=== PATIENT | female | born 1980 | race Caucasian/White ===

== ENCOUNTER → 2020-10-12 15:00 | Outpatient (CLI) | payer OTHER, SELFPAY | PROVIDERS: Visit Provider Family Medicine | DX: Z20.828 Contact with and (suspected) exposure to other viral communicable diseases (principal) | CPT/HCPCS: 87635; U0003 ==

== ENCOUNTER → 2024-11-14 | Outpatient (CLI) | payer OTHER, SELFPAY ==
--- OUTSIDE RECORDS SUMMARY | 2024-11-14 07:38 | XMS RPT_ITS | CCD ---
Author Organization [facility] Care Team Providers Care Stock Associate Name Role Phone Salbador Kuo Unavailable Unavailable Haeufgloeckner, Cem Unavailable Unavaila ble Haeufgloeckner, Cem Unavailable Unavaila ble Wagner, Saloni A Unavailable Unavailable Wagner Saloni A Unavailable Unavailable Salbador Kuo Unavailable Unavailable PROVIDER, UNKNOWN Admitting Unavailable PROVIDER, UNKNOWN Attending Unavailable HOOVER, CRISTIAN Admitting Unavailable HOOVER, CRISTIAN Primary Care Unavailable HOOVER, CRISTIAN Attending Unavailable HOOVER, CRISTIAN Admitting Unavailable HOOVER, CRISTIAN Primary Care Unavailable HOOVER, CRISTIAN Attending Unavailable HOOVER, CRISTIAN Admitting Unavailable HOOVER, CRISTIAN Primary Care Unavailable HOOVER, CRISTIAN Attending Unavailable HOOVER, CRISTIAN Admitting Unavailable HOOVER, CRISTIAN Primary Care Unavailable HOOVER, CRISTIAN Attending Unavailable HOOVER, CRISTIAN Admitting Unavailable HOOVER, CRISTIAN Primary Care Unavailable HOOVER, CRISTIAN Attending Unavailable HAEUFGLOECKNER DO, CEM Primary Care Physicia n Yifan, Elias Chi Attending Unavailable INA, K1 Primary Care Unavailable Yifan, Elias Chi Referring Unavailable INA, K1 Primary Care Unavailable Yifan, Elias Chi Referring Unavailable Yifan, Elias Chi Attending Unavailable HAEUFGLOECKNER DO, CEM Attending Unava ilable HAEUFGLOECKNER DO, CEM Primary Care Unava ilable HAEUFGLOECKNER DO, CEM Attending Unava ilable HAEUFGLOECKNER DO, CEM Primary Care Unava ilable HAEUFGLOECKNER DO, CEM Attending Unava ilable HAEUFGLOECKNER DO, CEM Primary Care Unava ilable Medications Current Medications Medication Drug Class(es) Dates Sig (Normalized) Sig (Original) melatonin 10 mg oral capsule (2 sources) Start: 02-05-2020 melatonin 10 mg oral capsule Dose : 10 mg = 1 cap(s), Oral, qHS, PRN for insomnia, # 90 cap(s), 0 Refill(s) Start Date: 02/05/20 Status: Ordered Vitamin D3 (2 sources) Start: 02-05-2020 Vitamin D3 Dose : 2,000 unit(s) = 1 tab(s), Oral, Daily, 0 Refill(s) Start Date: 02/05/20 Status: Ordered Completed/Discontinued Medications Medication Drug Class(es) Dates Sig (Normalized) Sig (Original) glycopyrrolate 2 mg oral tablet (1 source) Start: 10-27-2021 End: 11-06-2021 glycopyrrolate 2 mg oral tablet Dose : 2 mg = 1 tab(s), Oral, BID, For Hyperhidrosis, # 180 tab(s), 3 Refill(s), [facility]: [facility], 181, cm, 10/27/21 8:17:00 EDT, Height Start Date: 10/27/21 Stop Date: 11/06/21 Status: Ordered tiZANidine 2 mg oral tablet (1 source) Central alpha-2 Adrenergic Agonist Start: 03-22-2021 End: 04-05-2021 tiZANidine 2 mg oral tablet Dose : 2 mg = 1 tab(s), Oral, q8h, PRN as needed for muscle spasm, # 42 tab(s), 0 Refill(s), [facility]: [facility], Shoulder pain, right Sprain of right shoulder, 181, cm, 03/22/21 8:18:00 EDT, Height, kg, 03/22/21 8:18:00 EDT, Dos... 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 Residual codes; unclassified (1 source) Insomnia 02-19-2019 Episodic Residual codes; unclassified (1 source) Disturbance in sleep behavior 10-27-2021 Episodic Sprains and strains (1 source) Sprain of shoulder 04-12-2021 Episodic Unclassified (1 source) Unknown / UNK(Unknown) Onset: 01-24-2017 Unclassified (2 sources) ENCOUNTER FOR SCREENING FOR COVID-19; Translations: [ENCOUNTER FOR SCREENING FOR COVID-19] Onset: 02-03-2021 Unclassified (3 sources) Patient encounter status 02-19-2019 Past or Other Problems Problem Classification Problem Date Documented Da te Episodic/Chronic Immunizations and screening for infectious disease (3 sources) Encounter for screening for other viral diseases; Translations: [Encounter for screening for other viral diseases] Onset: 03-01-2020 Episodic Other screening for suspected conditions (not mental disorders or infectious disease) (3 sources) Encounter for screening mammogram for malignant neoplasm of breast; Translations: [Encounter for screening mammogram for malignant neoplasm of breast] Onset: 03-30-2020 Episodic Unclassified (1 source) UTERINE FIBROIDS, IRREGULAR MENSTRUATION Onset: 01-24-2017 Unclassified (1 source) ENCOUNTER FOR SCREENING FOR COVID-19; Translations: [ENCOUNTER FOR SCREENING FOR COVID-19] Onset: 02-03-2021 Results Test Name Value Interpretation Reference Range Facility MA MAMMOGRAM SCREENING BILAT ERAL W/TOMOon 02-25-2024 MA MAMMOGRAM SCREENING BILATERAL W/AYUSH ORIGINAL FROM: [address] [address] PROCEDURE FOR: ALVIN PATTON [address] [place] [address] Home: PID#: [id number] Exam#: [id number] : 1980 Age: 43 TO: CEM YANCEY [address] [place], [place] [address] Fax: NO FAX EXAMINATION: SCREENING DIGITAL BILATERAL MAMMOGRAM WITH TOMOSYNTHESIS, 02/25/2024 8:27 am TECHNIQUE: Screening mammography of the bilateral breasts was performed with tomosynthesis. 2D standard and 3D tomosynthesis combination imaging performed through both breasts in the MLO and CC projection. Computer aided detection was utilized in the interpretation of this exam. COMPARISON: 02/13/2023, 12/07/2021 HISTORY: Breast cancer screening. FINDINGS: BREAST DENSITY: The breasts are heterogeneously dense, which may obscure small masses. There are benign appearing calcifications in both breasts. There are no significant masses or calcifications. IMPRESSION: No mammographic evidence of malignancy. Continued screening with annual mammograms is recommended. [facility] risk calculations, generated with the history provided, report this patient's 10 year risk and lifetime risk for developing breast cancer at 1.6% and 10.9%, respectively. Based on this assessment tool, if the patient's calculated lifetime risk is below 20%, then the patient is considered at average risk for developing breast cancer. If the patient's calculated lifetime risk is at or above 20%, then the patient is considered high risk for developing breast cancer and may be a candidate for supplemental breast MRI screening in addition to annual mammographic screening per the [employer]. BIRADS: BI-RADS: 2: Benign RECALL: 1 year screening RECALL TYPE: mammo LETTER SENT: Normal BI-RADS 1 and 2 Interpreted by: Harpreet Hall MD Preliminary Report By: Harpreet Hall MD Electronically signed By Harpreet Hall MD Dictated Date: 02/25/2024 11:48:44 PM Prelim Date: 02/25/2024 11:50:25 PM Sign Date: 02/25/2024 11:50:25 PM Ordering Provider: CEM YANCEY Telescope Maintenance: STEPHANIE TANG letter sent: Normal BI-RADS 1 and 2 Mammogram BI-RADS: 2 Benign Normal [facility] .Auto Diffon 11-09-2023 Basophil, Absolute 0.1 10 3/mcL Normal 0.0-0.3 [facility] ([place]) Comment on above: Performed By: #### L IPID, GFR, ANEU, CBC, ADIFF, CMP, VIDH #### [facility] [address] [place] [address] Basophils/100 WBC (Bld) 1.1 % Normal 0.0-2.5 [facility] ([place]) Comment on above: Performed By: #### L IPID, GFR, ANEU, CBC, ADIFF, CMP, VIDH #### [address] [address] Eosinophil, Absolute 0.2 10 3/mcL Normal 0.0-0.7 [facility] ([place]) Comment on above: Performed By: #### L IPID, GFR, ANEU, CBC, ADIFF, CMP, VIDH #### [address] [address] Eosinophils/100 WBC (Bld) 2.8 % Normal 0.0-6.0 [facility] ([place]) Comment on above: Performed By: #### L IPID, GFR, ANEU, CBC, ADIFF, CMP, VIDH #### [address] [address] Lymphocyte, Absolute 1.6 10 3/mcL Normal 0.9-4.3 [facility] ([place]) Comment on above: Performed By: #### L IPID, GFR, ANEU, CBC, ADIFF, CMP, VIDH #### [address] [address] Lymphocytes/100 WBC (Bld) 26.4 % Normal 20.0-40.0 [facility] ([place]) Comment on above: Performed By: #### L IPID, GFR, ANEU, CBC, ADIFF, CMP, VIDH #### [address] [address] Monocyte, Absolute 0.4 10 3/mcL Normal 0.1-1.4 [facility] ([place]) Comment on above: Performed By: #### L IPID, GFR, ANEU, CBC, ADIFF, CMP, VIDH #### [address] [address] Monocytes/100 WBC (Bld) 6.8 % Normal 2.0-13.0 [facility] ([place]) Comment on above: Performed By: #### L IPID, GFR, ANEU, CBC, ADIFF, CMP, VIDH #### [address] [address] Neutrophils/100 WBC (Bld) 62.9 % Normal 50.0-75.0 [facility] ([place]) Comment on above: Performed By: #### L IPID, GFR, ANEU, CBC, ADIFF, CMP, VIDH #### [address] [address] .GFRon 11-09-2023 GFR Non- >60 Normal [facility] ([place]) Comment on above: Result Comment: GFR Population mean for , Non- Americans Ages 20-29 = 116 mL/min/1.73 sq.m. Ages 30-39 = 107 mL/min/1.73 sq.m. Ages 40-49 = 99 mL/min/1.73 sq.m. Ages 50-59 = 93 mL/min/1.73 sq.m. Ages 60-69 = 85 mL/min/1.73 sq.m. Ages 70+ = 75 mL/min/1.73 sq.m. Chronic Kidney Disease: Less than 60 mL/min/1.73 square meters End Stage Renal Disease: Less than 15 mL/min/1.73 square meters Performed By: #### L IPID, GFR, ANEU, CBC, ADIFF, CMP, VIDH #### [address] [address] GFR >60 Normal [facility] ([place]) Comment on above: Result Comment: GFR Population mean for , Non- Americans Ages 20-29 = 116 mL/min/1.73 sq.m. Ages 30-39 = 107 mL/min/1.73 sq.m. Ages 40-49 = 99 mL/min/1.73 sq.m. Ages 50-59 = 93 mL/min/1.73 sq.m. Ages 60-69 = 85 mL/min/1.73 sq.m. Ages 70+ = 75 mL/min/1.73 sq.m. Chronic Kidney Disease: Less than 60 mL/min/1.73 square meters End Stage Renal Disease: Less than 15 mL/min/1.73 square meters Performed By: #### L IPID, GFR, ANEU, CBC, ADIFF, CMP, VIDH #### [address] [address] .NEUABSon 11-09-2023 Neutrophil, Absolute 3.9 10 3/mcL Normal 2.3-8.1 [facility] ([place]) Comment on above: Performed By: #### L IPID, GFR, ANEU, CBC, ADIFF, CMP, VIDH #### [address] [address] CBCon 11-09-2023 Erythrocyte distribution width (RBC) [Ratio] 12.5 % Normal 11.5-15.5 [facility] ([place]) Comment on above: Order Comment: *12 m onths Performed By: #### L IPID, GFR, ANEU, CBC, ADIFF, CMP, VIDH #### [address] [address] Hematocrit (Bld) [Volume fraction] 46.0 % Normal 34.0-46.0 [facility] ([place]) Comment on above: Order Comment: *12 m onths Performed By: #### L IPID, GFR, ANEU, CBC, ADIFF, CMP, VIDH #### [place] [address] Hgb 15.5 G/dL Normal 12.0-16.0 [facility] ([place]) Comment on above: Order Comment: *12 m onths Performed By: #### L IPID, GFR, ANEU, CBC, ADIFF, CMP, VIDH #### [address] [address] MCH (RBC) [Entitic mass] 30.6 pg Normal 27.0-33.0 [facility] ([place]) Comment on above: Order Comment: *12 m onths Performed By: #### L IPID, GFR, ANEU, CBC, ADIFF, CMP, VIDH #### [address] [address] MCHC 33.7 G/dL Normal 32.0-36.0 [facility] ([place]) Comment on above: Order Comment: *12 m onths Performed By: #### L IPID, GFR, ANEU, CBC, ADIFF, CMP, VIDH #### [address] [address] MCV (RBC) [Entitic vol] 90.9 fL Normal 80.0-99.0 [facility] ([place]) Comment on above: Order Comment: *12 m onths Performed By: #### L IPID, GFR, ANEU, CBC, ADIFF, CMP, VIDH #### [address] [address] Platelet 245 10 3/mcL Normal 150-450 [facility] ([place]) Comment on above: Order Comment: *12 m onths Performed By: #### L IPID, GFR, ANEU, CBC, ADIFF, CMP, VIDH #### [address] [address] Platelet mean volume (Bld) [Entitic vol] 9.9 fL Normal 6.6-10.5 [facility] ([place]) Comment on above: Order Comment: *12 m onths Performed By: #### L IPID, GFR, ANEU, CBC, ADIFF, CMP, VIDH #### [address] [address] RBC 5.06 10 6/mcL Normal 4.10-5.30 [facility] ([place]) Comment on above: Order Comment: *12 m onths Performed By: #### L IPID, GFR, ANEU, CBC, ADIFF, CMP, VIDH #### [address] [address] WBC 6.1 10 3/mcL Normal 4.5-10.8 [facility] ([place]) Comment on above: Order Comment: *12 m onths Performed By: #### L IPID, GFR, ANEU, CBC, ADIFF, CMP, VIDH #### [address] [address] CMPon 11-09-2023 Albumin Level 4.1 G/dL Normal 3.2-4.8 [facility] ([place]) Comment on above: Order Comment: *12 m onths Performed By: #### L IPID, GFR, ANEU, CBC, ADIFF, CMP, VIDH #### [address] [address] Albumin/Globulin [Mass ratio] 1.5 {ratio} Normal 0.9-1.6 [facility] ([place]) Comment on above: Order Comment: *12 m onths Performed By: #### L IPID, GFR, ANEU, CBC, ADIFF, CMP, VIDH #### [address] [address] ALP [Catalytic activity/Vol] 69 U/L Normal 38-126 [facility] ([place]) Comment on above: Order Comment: *12 m onths Performed By: #### L IPID, GFR, ANEU, CBC, ADIFF, CMP, VIDH #### [address] [address] ALT [Catalytic activity/Vol] 18 U/L Normal 10-49 [facility] ([place]) Comment on above: Order Comment: *12 m onths Performed By: #### L IPID, GFR, ANEU, CBC, ADIFF, CMP, VIDH #### [address] [address] AST [Catalytic activity/Vol] 17 U/L Normal 8-34 [facility] ([place]) Comment on above: Order Comment: *12 m onths Performed By: #### L IPID, GFR, ANEU, CBC, ADIFF, CMP, VIDH #### [address] [address] Bili Total 0.80 mg/dL Normal 0.20-1.20 [facility] ([place]) Comment on above: Order Comment: *12 m onths Result Comment: Use of this assay is not recommended for patients undergoing treatment with eltrombopag due to the potential for falsely elevated results. Performed By: #### L IPID, GFR, ANEU, CBC, ADIFF, CMP, VIDH #### [address] [address] BUN/Creatinine Ratio 22.1 ratio High 10.0-22.0 [facility] ([place]) Comment on above: Order Comment: *12 m onths Performed By: #### L IPID, GFR, ANEU, CBC, ADIFF, CMP, VIDH #### [address] [address] Calcium [Mass/Vol] 9.6 mg/dL Normal 8.7-10.4 [facility] ([place]) Comment on above: Order Comment: *12 m onths Performed By: #### L IPID, GFR, ANEU, CBC, ADIFF, CMP, VIDH #### [address] [address] Chloride [Moles/Vol] 106 mmol/L Normal 98-110 [facility] ([place]) Comment on above: Order Comment: *12 m onths Performed By: #### L IPID, GFR, ANEU, CBC, ADIFF, CMP, VIDH #### [address] [address] CO2 [Moles/Vol] 27 mmol/L Normal 22-32 [facility] ([place]) Comment on above: Order Comment: *12 m onths Performed By: #### L IPID, GFR, ANEU, CBC, ADIFF, CMP, VIDH #### [address] [address] Creatinine [Mass/Vol] 0.77 mg/dL Normal 0.50-1.20 [facility] ([place]) Comment on above: Order Comment: *12 m onths Performed By: #### L IPID, GFR, ANEU, CBC, ADIFF, CMP, VIDH #### [address] [address] Electrolyte Balance 8.0 mEq/L Normal 4.0-15.0 [facility] ([place]) Comment on above: Order Comment: *12 m onths Performed By: #### L IPID, GFR, ANEU, CBC, ADIFF, CMP, VIDH #### [address] [address] Globulin 2.8 G/dL Normal 1.5-3.8 [facility] ([place]) Comment on above: Order Comment: *12 m onths Performed By: #### L IPID, GFR, ANEU, CBC, ADIFF, CMP, VIDH #### [address] [address] Glucose [Mass/Vol] 83 mg/dL Normal 70-110 [facility] ([place]) Comment on above: Order Comment: *12 m onths Performed By: #### L IPID, GFR, ANEU, CBC, ADIFF, CMP, VIDH #### [address] [address] Potassium [Moles/Vol] 4.2 mmol/L Normal 3.5-5.0 [facility] ([place]) Comment on above: Order Comment: *12 m onths Performed By: #### L IPID, GFR, ANEU, CBC, ADIFF, CMP, VIDH #### [address] [address] Sodium [Moles/Vol] 141 mmol/L Normal 136-145 [facility] ([place]) Comment on above: Order Comment: *12 m onths Performed By: #### L IPID, GFR, ANEU, CBC, ADIFF, CMP, VIDH #### [address] [address] Total Protein 6.9 G/dL Normal 5.7-8.2 [facility] ([place]) Comment on above: Order Comment: *12 m onths Result Comment: No te - New Reference Range in effect 19 Performed By: #### L IPID, GFR, ANEU, CBC, ADIFF, CMP, VIDH #### [address] [address] Urea nitrogen [Mass/Vol] 17.0 mg/dL Normal 8.0-22.0 [facility] ([place]) Comment on above: Order Comment: *12 m onths Performed By: #### L IPID, GFR, ANEU, CBC, ADIFF, CMP, VIDH #### [address] [address] LIPIDon 11-09-2023 Cholesterol [Mass/Vol] 201 mg/dL High 50-199 [facility] ([place]) Comment on above: Order Comment: *12 m onths Result Comment: Chol esterol Reference Interval: Less than 200 Desirable 200-239 Borderline high risk 240 and above High risk Performed By: #### L IPID, GFR, ANEU, CBC, ADIFF, CMP, VIDH #### [address] [address] Cholesterol in HDL [Mass/Vol] 85 mg/dL High 40-59 [facility] ([place]) Comment on above: Order Comment: *12 m onths Performed By: #### L IPID, GFR, ANEU, CBC, ADIFF, CMP, VIDH #### [facility] [address] [place] [address] Cholesterol in LDL [Mass/Vol] 105 mg/dL Normal 0-129 [facility] ([place]) Comment on above: Order Comment: *12 m onths Performed By: #### L IPID, GFR, ANEU, CBC, ADIFF, CMP, VIDH #### [facility] [address] [place] [address] Triglyceride [Mass/Vol] 57 mg/dL Normal 3-149 [facility] ([place]) Comment on above: Order Comment: *12 m onths Performed By: #### L IPID, GFR, ANEU, CBC, ADIFF, CMP, VIDH #### [address] [address] VIDHon 11-09-2023 Vit. D 25-Hydroxy 30.1 ng/mL Normal [facility] ([place]) Comment on above: Order Comment: *12 m onths Result Comment: Inte rpretive Values Based on Total 25(OH)D: Severe Deficiency <20 ng/mL Mild to Moderate Deficiency 20-30 ng/mL Optimum Levels 30-100 ng/mL Toxicity Possible >100 ng/mL Performed By: #### L IPID, GFR, ANEU, CBC, ADIFF, CMP, VIDH #### [address] [address] [place] MAMMOGRAM DIAGNOSTIC BILA TERAL W/TOMOon 02-13-2023 MA MAMMOGRAM DIAGNOSTIC BILATERAL W/AYUSH ORIGINAL FROM: [facility] [address] [place] [address] PROCEDURE FOR: ALVIN PATTON [address] [place] [address] Home: PID#: [id number] Exam#: [id number] : 1980 Age: 42 TO: CEM YANCEY DO [address] [place], [place] [address] Fax: NO FAX EXAMINATION: DIAGNOSTIC BILATERAL MAMMOGRAM WITH TOMOSYNTHESIS, 02/13/2023 9:01 am TECHNIQUE: Tomosynthesis was performed as part of the diagnostic bilateral mammogram. 2D standard and 3D tomosynthesis combination imaging performed. Current study was also evaluated with a Computer Aided Detection (CAD) system. COMPARISON: January 02, 2022, December 07, 2021 HISTORY: ORDERING SYSTEM PROVIDED HISTORY: Reason for Exam: LEFT breast asymmetry; due for bilateral screening FINDINGS: BREAST DENSITY: Heterogeneously dense The previously seen area of mammographic interest in the left breast is not present on the current study, and likely represented superimposed fibroglandular tissue. No significant masses, calcifications, or other findings. IMPRESSION: No mammographic evidence of malignancy. The patient may return to annual mammographic screening. BIRADS: MAMMOGRAM BI-RADS: 2: Benign finding RECALL: return to screening RECALL TYPE: mammo LETTER SENT: Normal BI-RADS 1 and 2 Interpreted by: Meka Nolasco Preliminary Report By: Meka Nolasco Electronically signed By Meka Nolasco Dictated Date: 02/13/2023 4:56:39 PM Prelim Date: 02/13/2023 5:28:12 PM Sign Date: 02/13/2023 5:28:12 PM Ordering Provider: CEM YANCEY CLINICAL: ASYMMETRIC DENSITY LEFT BREAST. Telescope Maintenance: VELMA MAC RT(R)(M) letter sent: Normal BI-RADS 1 and 2 Mammogram BI-RADS: 2 Benign Normal [facility] ([place]) COVID 19 AG RAPID (SELMA Obando)on 02-10-2023 SARS-CoV-2 (COVID-19) RNA MARYELLEN+probe Ql (Unsp spec) *Negative results from patients with symptom onset beyond five days should be treated as presumptive and confirmed by a molecular assay if clinically necessary. Negative results should not be used as the sole basis for treatment or for patient management. SARS-CoV-2 Ag Resp Ql IA.rapid *Positive results do not differentiate between SARS-CoV and SARS-CoV-2. If differentiation of the specific SARS virus is desired an additional sample and an additional order is required. SARS-CoV-2 Ag Resp Ql IA.rapid * This test has not been FDA cleared or approved; the test has been authorized by FDA under an Emergency Use Authorization (EAU) for use by laboratories certified under CLIA that meet the requirements to perform moderate, high, or waived complexity tests. SARS-CoV-2 Ag Resp Ql IA.rapid Normal Reference Range: Negative SARS-CoV-2 (COVID 19) Negative RAPID METHOD [employer] COVID19 [address] [facility] Comment on above: Performed By: #### M 100.505 #### [facility] [address] [facility] [place], [address] COVID-19 virus antigen assay Ordered By: Elias Saha on 02-10-2023 SARS-CoV-2 (COVID-19) Ag IA.rapid Ql (Resp) [facility] LABORATORYOrdered By: SYSTEM SYSTEM on 10-21-2021 Albumin BCP dye [Mass/Vol] 4.0 G/dL Invalid Interpretation Code 3.2 - 4.8 G/dL ADM SS Albumin/Globulin [Mass ratio] 1.4 {ratio} Invalid Interpretation Code 0.9 - 1.6 ratio AH ADM SS ALP [Catalytic activity/Vol] 82 U/L Invalid Interpretation Code 38 - 126 U/L AH ADM SS ALT No additional P-5'-P [Catalytic activity/Vol] 17 U/L Invalid Interpretation Code 10 - 49 U/L AH ADM SS AST [Catalytic activity/Vol] 15 U/L Invalid Interpretation Code 8 - 34 U/L AH ADM SS Bilirubin [Mass/Vol] 0.80 mg/dL Invalid Interpretation Code 0.20 - 1.20 mg/dL AH ADM SS Calcium [Mass/Vol] 9.8 mg/dL Invalid Interpretation Code 8.7 - 10.4 mg/dL AH ADM SS Chloride [Moles/Vol] 105 mmol/L Invalid Interpretation Code 98 - 110 mEq/L AH ADM SS CO2 [Moles/Vol] 29 mmol/L Invalid Interpretation Code 22 - 32 mEq/L AH ADM SS Creatinine [Mass/Vol] 0.94 mg/dL Invalid Interpretation Code 0.50 - 1.20 mg/dL AH ADM SS Electrolyte Balance 6.0 mEq/L Invalid Interpretation Code 4.0 - 15.0 mEq/L AH ADM SS Erythrocyte distribution width (RBC) [Ratio] 12.7 % Invalid Interpretation Code 11.5 - 15.5 % Workflow SS GFR/1.73 sq M.predicted among blacks MDRD (S/P/Bld) [Vol rate/Area] ml/min/1.73sqm Invalid Interpretation Code Chemistry S GFR/1.73 sq M.predicted among non-blacks MDRD (S/P/Bld) [Vol rate/Area] ml/min/1.73sqm Invalid Interpretation Code Chemistry S Globulin 2.9 G/dL Invalid Interpretation Code 1.5 - 3.8 G/dL ADM SS Glucose [Mass/Vol] 88 mg/dL Invalid Interpretation Code 70 - 110 mg/dL ADM SS Hematocrit (Bld) [Volume fraction] 46.6 % Invalid Interpretation Code 34.0 - 46.0 % Workflow SS Hgb 15.5 G/dL Invalid Interpretation Code 12.0 - 16.0 G/dL Workflow SS MCH (RBC) [Entitic mass] 30.1 pg Invalid Interpretation Code 27.0 - 33.0 pg Workflow SS MCHC 33.3 G/dL Invalid Interpretation Code 32.0 - 36.0 G/dL Workflow SS MCV (RBC) [Entitic vol] 90.4 fL Invalid Interpretation Code 80.0 - 99.0 fL Workflow SS Platelet 253 103/mcL Invalid Interpretation Code 150 - 450 10^3/mcL Workflow SS Platelet mean volume (Bld) [Entitic vol] 9.0 fL Invalid Interpretation Code 6.6 - 10.5 fL Workflow SS Potassium [Moles/Vol] 4.7 mmol/L Invalid Interpretation Code 3.5 - 5.0 mEq/L ADM SS Protein [Mass/Vol] 6.9 G/dL Invalid Interpretation Code 5.7 - 8.2 G/dL ADM SS RBC 5.15 106/mcL Invalid Interpretation Code 4.10 - 5.30 10^6/mcL Workflow SS Sodium [Moles/Vol] 140 mmol/L Invalid Interpretation Code 136 - 145 mEq/L ADM SS Urea nitrogen [Mass/Vol] 20.0 mg/dL Invalid Interpretation Code 8.0 - 22.0 mg/dL ADM SS Urea nitrogen/Creatinine [Mass ratio] 21.3 ratio Invalid Interpretation Code 10.0 - 22.0 ratio ADM SS WBC 6.3 103/mcL Invalid Interpretation Code 4.5 - 10.8 10^3/mcL Workflow SS LABORATORYOrdered By: Remy Garcia on 10-21-2021 Cholesterol [Mass/Vol] 194 mg/dL Invalid Interpretation Code 50 - 199 mg/dL AH ADM SS Cholesterol in HDL [Mass/Vol] 84 mg/dL Invalid Interpretation Code 40 - 59 mg/dL AH ADM SS Cholesterol in LDL [Mass/Vol] 100 mg/dL Invalid Interpretation Code 0 - 129 mg/dL AH ADM SS Triglyceride [Mass/Vol] 51 mg/dL Invalid Interpretation Code 3 - 149 mg/dL ADM SS CORONAVIRUS PCR - [facility] 02-03-2021 SARS-CoV-2 (COVID-19) RNA MARYELLEN+probe Ql (Unsp spec) Negative Normal NORMAL: NEGATIVE [facility] Comment on above: Performed By: #### 2 [id number] #### [facility],[address] [place] [address] SEND TO IC? YES Normal [facility] Comment on above: Result Comment: RESU LTS FAXED TO INFECTION CONTROL. SARS-CoV-2 THIS TEST IS BEING USED UNDER THE FDA EUA PROCEDURE. THIS ASSAY HAS BEEN VALIDATED IN THE [facility] FOR USE WITH NASOPHARYNGEAL SPECIMENS IN [facility]. INTERPRETIVE DATA LABORATORY TEST RESULTS SHOULD ALWAYS BE CONSIDERED IN THE CONTEXT OF CLINICAL OBSERVATIONS AND EPIDEMIOLOGICAL DATA IN MAKING FINAL DIAGNOSIS AND PATIENT MANAGEMENT DECISIONS. PATIENT MANAGEMENT SHOULD FOLLOW CURRENT CDC GUIDELINES. A POSITIVE TEST RESULT FOR COVID-19 INDICATES THAT RNA FROM SARS-CoV-2 WAS DETECTED, AND THE PATIENT IS INFECTED WITH THE VIRUS AND PRESUMED TO BE CONTAGIOUS. A NEGATIVE TEST RESULT FOR THIS TEST MEANS THAT SARS-CoV-2 RNA WAS NOT PRESENT IN THE SPECIMEN ABOVE THE LIMIT OF DETECTION. HOWEVER, A NEGATVIE RESULT DOES NOT RULE OUT COVID-19 AND SHOULD NOT BE USED THE SOLE BASIS FOR TREATMENT OR PATIENT MANAGEMENT DECISIONS. A NEGATIVE RESULT DOES NOT EXCLUDE THE POSSIBILITY OF COVID-19. WHEN DIAGNOSTIC TESTING IS NEGATIVE, THE POSSIBLILTY OF A FALSE NEGATIVE RESULT SHOULD BE CONSIDERED IN THE CONTEXT OF A PATIENT'S RECENT EXPOSURES AND THE PRESENCE OF CLINICAL SIGNS AND SYMPTOMS CONSISTENT WITH COVID-19. THE POSSIBILITY OF A FALSE NEGATIVE RESULT SHOULD ESPECIALLY BE CONSIDERED IF THE PATIENT'S RECENT EXPOSURES OR CLINICAL PRESENTATION INDICATE THAT COVID-19 IS LIKELY, AND DIAGNOSTIC TESTS FOR OTHER CAUSES OF ILLNESS (e.g., OTHER RESPIRATORY ILLNESS) ARE NEGATIVE. IF COVID-19 IS STILL SUSPECTED BASED ON EXPOSURE HISTORY TOGETHER WITH OTHER CLINICAL FINDINGS, RE-TESTED SHOULD BE CONSIDERED BY HEALTHCARE PROVIDERS IN CONSULTATION WITH PUBLIC HEALTH AUTHORITIES. Performed By: #### 2 [id number] #### [facility],[address] [place] [address] CORONAVIRUS PCR [CCL]on 03-21 SARS-CoV-2 (COVID-19) RNA MARYELLEN+probe Ql (Unsp spec) Unknown Normal [facility] Comment on above: Result Comment: Sarah ected on 03/31 AT 1308: Previously reported as U Performed By: #### 2 [id number] #### [address] [address] SARS-CoV-2 (COVID-19) RNA MARYELLEN+probe Ql (Unsp spec) Negative Normal [facility] Comment on above: Result Comment: Nega tive for COVID19 (SARS CoV2) by PCR. This test was developed and its performance characteristics determined by [facility]'s [facility] [place]. This test has been authorized by FDA under an Emergency Use Authorization (EUA). This test has been validated in accordance with the FDA's Guidance Document Policy for Diagnostics Testing in Laboratories Certified to Perform High Complexity Testing under CLIA prior to Emergency use Authorization for Coronavirus Disease 2019 during the Public Health Emergency issued on July 19, 2019. [facility] [address] [place] [address] Domenic Hall III, M.D. [id number] Performed By: #### 2 57474 #### [address] [address] Coronavirus 2019on 0 COVID 19 Result CATTLE SPRAYER Normal Negative for COVID19 (SARS CoV2) by PCR. [facility] Comment on above: Result Comment: Nega tive for This test was developed and its performance characteristics determined by [facility]'s [facility] [place]. This test has been authorized by FDA under an Emergency Use Authorization (EUA). This test has been validated in accordance with the FDA's Guidance Document Policy for Diagnostics Testing in Laboratories Certified to Perform High Complexity Testing under CLIA prior to Emergency use Authorization for Coronavirus Disease 2019 during the Public Health Emergency issued on July 19, 2019. COVID19 (SARS This test was developed and its performance characteristics determined by [facility]'s [facility] [place]. This test has been authorized by FDA under an Emergency Use Authorization (EUA). This test has been validated in accordance with the FDA's Guidance Document Policy for Diagnostics Testing in Laboratories Certified to Perform High Complexity Testing under CLIA prior to Emergency use Authorization for Coronavirus Disease 2019 during the Public Health Emergency issued on July 19, 2019. CoV2) by PCR. This test was developed and its performance characteristics determined by [facility]'s [facility] [place]. This test has been authorized by FDA under an Emergency Use Authorization (EUA). This test has been validated in accordance with the FDA's Guidance Document Policy for Diagnostics Testing in Laboratories Certified to Perform High Complexity Testing under CLIA prior to Emergency use Authorization for Coronavirus Disease 2019 during the Public Health Emergency issued on July 19, 2019. Coronavirus 2019on 0 COVID 19 Source CATTLE SPRAYER Unknown Normal [facility] CORONAVIRUS PCR [CCL]on 02-18 SARS-CoV-2 (COVID-19) RNA MARYELLEN+probe Ql (Unsp spec) Nasopharyngeal Swab Normal [facility] Comment on above: Result Comment: Sarah ected on 03/08 AT 0937: Previously reported as CATTLE SPRAYER SWAB Performed By: #### 2 [id number] #### [facility],[address] [place], [place] [id number] SARS-CoV-2 (COVID-19) RNA MARYELLEN+probe Ql (Unsp spec) Negative Normal [facility] Comment on above: Result Comment: Nega tive for COVID19 (SARS CoV2) by PCR. This test was developed and its performance characteristics determined by [facility]'s [facility] [place]. This test has been authorized by FDA under an Emergency Use Authorization (EUA). This test has been validated in accordance with the FDA's Guidance Document Policy for Diagnostics Testing in Laboratories Certified to Perform High Complexity Testing under CLIA prior to Emergency use Authorization for Coronavirus Disease 2019 during the Public Health Emergency issued on July 19, 2019. [facility] [place] [address] [place] [address] Domenic Hall III, M.D. [id number] Performed By: #### 2 [id number] #### [facility],[address] [place], [place] [id number] Coronavirus 2019on 0 COVID 19 Result CATTLE SPRAYER Normal Negative for COVID19 (SARS CoV2) by PCR. [facility] Comment on above: Result Comment: Nega tive for This test was developed and its performance characteristics determined by [facility]'s [facility] [place]. This test has been authorized by FDA under an Emergency Use Authorization (EUA). This test has been validated in accordance with the FDA's Guidance Document Policy for Diagnostics Testing in Laboratories Certified to Perform High Complexity Testing under CLIA prior to Emergency use Authorization for Coronavirus Disease 2019 during the Public Health Emergency issued on July 19, 2019. COVID19 (SARS This test was developed and its performance characteristics determined by [facility]'s [facility] [place]. This test has been authorized by FDA under an Emergency Use Authorization (EUA). This test has been validated in accordance with the FDA's Guidance Document Policy for Diagnostics Testing in Laboratories Certified to Perform High Complexity Testing under CLIA prior to Emergency use Authorization for Coronavirus Disease 2019 during the Public Health Emergency issued on July 19, 2019. CoV2) by PCR. This test was developed and its performance characteristics determined by [facility]'s [facility] [place]. This test has been authorized by FDA under an Emergency Use Authorization (EUA). This test has been validated in accordance with the FDA's Guidance Document Policy for Diagnostics Testing in Laboratories Certified to Perform High Complexity Testing under CLIA prior to Emergency use Authorization for Coronavirus Disease 2019 during the Public Health Emergency issued on July 19, 2019. Performed By: #### C OVID #### [facility] Reference [facility] [place] [id number] COVID 19 Source CATTLE SPRAYER Normal [facility] Comment on above: Result Comment: Naso pharyngeal Corrected on 03/08 AT 0937: Previously reported as CATTLE SPRAYER SWAB Swab Corrected on 03/08 AT 0937: Previously reported as CATTLE SPRAYER SWAB Performed By: #### C OVID #### [facility] Reference [address] [place] [id number] CORONAVIRUS PCR [CCL]on 02-18 REF LAB REPORT Negative Normal [facility] Comment on above: Performed By: #### 2 09286 #### [facility],[address] [place] [address] SARS-CoV-2 (COVID-19) RNA MARYELLEN+probe Ql (Unsp spec) U Normal [facility] Comment on above: Performed By: #### 2 47111 #### [facility],[address] [place] [address] SARS-CoV-2 (COVID-19) RNA MARYELLEN+probe Ql (Unsp spec) Negative Normal [facility] Comment on above: Result Comment: Nega tive for COVID19 (SARS CoV2) by PCR. This test was developed and its performance characteristics determined by [facility] [place]. This test has been authorized by FDA under an Emergency Use Authorization (EUA). This test has been validated in accordance with the FDA's Guidance Document Policy for Diagnostics Testing in Laboratories Certified to Perform High Complexity Testing under CLIA prior to Emergency use Authorization for Coronavirus Disease 2019 during the Public Health Emergency issued on July 19, 2019. [facility] [address] [place] [address] Domenic Hall III, M.D. [id number] Performed By: #### 2 04505 #### [facility],[address] [place] [address] CORONAVIRUS PCR [CCL]on 02-18 REF LAB REPORT Negative Normal [facility] Comment on above: Performed By: #### 2 10195 #### [facility],[address] [place] [address] SARS-CoV-2 (COVID-19) RNA MARYELLEN+probe Ql (Unsp spec) U Normal [facility] Comment on above: Performed By: #### 2 70532 #### [facility],[address] [place] [address] SARS-CoV-2 (COVID-19) RNA MARYELLEN+probe Ql (Unsp spec) Negative Normal [facility] Comment on above: Result Comment: Nega tive for COVID19 (SARS CoV2) by PCR. This test was developed and its performance characteristics determined by [facility]'s [facility] Pathology and Laboratory Medicine [place]. This test has been authorized by FDA under an Emergency Use Authorization (EUA). This test has been validated in accordance with the FDA's Guidance Document Policy for Diagnostics Testing in Laboratories Certified to Perform High Complexity Testing under CLIA prior to Emergency use Authorization for Coronavirus Disease 2019 during the Public Health Emergency issued on July 19, 2019. [facility] [address] [place] [address] Domenic Hall III, M.D. [id number] Performed By: #### 2 73193 #### [facility],[address] [place] [address] NOVEL CORONAVIRUS (COVID-19) on 11-11-2019 SARS-COV-2 Not Detected Normal Not Detected [facility] [employer] [facility] Comment on above: Order Comment: This assay was performed by [employer] (MARYELLEN) on the Aptima??? [place]??? System ([employer] [place], [place]) using [employer] Mediated Amplification (TMA) technology. This test was developed, and its performance characteristics determined by [facility]. The Aptima??? SARS-CoV-2 assay is for use only under Emergency Use Authorization (EUA) in the US laboratories certified under the Clinical Laboratory Improvement Amendments of 1988 (CLIA), 42 U.S.C. ???263a, to perform high complexity tests. Performed By: #### C OVID19 #### [facility] [address] [place], [address] HHon 01-25-2017 Hematocrit (HCT) 29.9 % Low 35.0-47.0 [facility] Comment on above: Order Comment: Davidu s: M Performed By: #### L 550.48229 ####[facility] [id number] [place], [place] [address]Fr# [phone] Hemoglobin mass conc (Bld) 8.8 g/dL Low 11.5-15.5 [facility] Comment on above: Order Comment: Davidu s: M Performed By: #### L 550.00439 ####[facility] [id number] [place], [place] [address]Sr# [phone] ORon 01-24-2017 OPERATIVE REPORT Normal [facility] OR DATE OF SERVICE: 01/24/2017PREOPERATIVE DIAGNOSIS: Menorrhagia.POSTOPERATIVE DIAGNOSIS: Menorrhagia.OPERATION: Total vaginal hysterectomy.SURGEON: Salbador Kuo MDASSISTANT: Danny Franz DOANESTHESIA: General.INTRAVENOUS FLUIDS: 1000 mLESTIMATED BLOOD LOSS: 25 mLCOMPLICATIONS: None.SPECIMEN: Uterus and cervix.CONDITION: Stable.FINDINGS: The external genitalia, introitus and cervix appeared normal and waswithout any evidence of lesions or trauma. Grade 1 apical prolapse present.Examination under anesthesia revealed a normal-sized anteverted uterus with normalcontour and bilateral adnexa.INDICATIONS: Ms. Patton is a 36-year-old female with a history of menorrhagia whodesired definitive surgical management and was recommended for the above procedure.At her preoperative appointment, the patient was informed of the risks, benefits andalternatives. Risks include, but were not limited to bleeding, infection, injury tothe internal organs including bowel, bladder and/or vasculature. The patient isaware and continues to desire this procedure. Consent was obtained at herpreoperative appointment.PROCEDURE: The patient was taken back to the operating room with IV fluids running.SCDs were placed on the lower extremities and remained throughout the entireprocedure. Preoperative antibiotics were given for infection prophylaxis and generalanesthesia was established and found to be adequate. A time-out was performed toconfirm the correct patient and correct procedure. The patient was then placed in adorsal lithotomy position using yellowfin stirrups and she was prepped and draped inthe usual sterile fashion. A Cesar catheter was inserted into the bladder and abimanual examination was performed with the above-noted findings appreciated. [facility] PATIENT NAME: ALVIN PATTON [id number] [facility] [address] [facility] MEDICAL REC #: [id number], [place] [address] DATE:DISCHARGE DATE: 01/25/17OPERATIVE REPORT ATTENDING PHY: Salbador Kuo MDweighted speculum was placed into the vagina and Court tenaculums were then usedto grasp the anterior and posterior aspects of the cervix. The cervix was theninjected circumferentially with 1% lidocaine and epinephrine solution forhydrodissection. The cervix was then circumferentially incised with a scalpel andMayo scissors and further blunt dissection was then accomplished using an openRay-Shiraz. The posterior peritoneum was then identified and opened using Mayoscissors, gaining access to the posterior cul-de-sac without complication. A curvedHeaney clamp was then used over the right uterosacral ligament which was then cut andsuture ligated. The same was then repeated to the left uterosacral ligament. Theright and left cardinal ligaments were then clamped, cut and suture ligated as well,and this allowed adequate visualization of the uterine vessels which were also bothclamped, cut and suture ligated; first with a free tie and then with a Heaneytransfixation suture bilaterally. Excellent hemostasis was observed. Attention wasthen turned anteriorly where the uterus could be brought down and further allowbetter visualization of the bladder reflection. The anterior peritoneum wasidentified and entered sharply with Metzenbaum scissors and the right-angle retractorwas placed to retract the bladder away from the operative field. The right and leftutero-ovarian ligaments were then grasped with curved Yary clamps and cut,resulting in complete amputation of the uterus and cervix which were taken off theoperating field and sent to pathology for further evaluation. The utero-ovarianpedicles were then ligated first with a free tie and then suture ligated. Excellenthemostasis at all pedicles was observed. The posterior peritoneum was then affixedto the posterior edge of the vaginal mucosa with a running 0 stitch and theperitoneum was then closed with a pursestring suture. A figure of eight stitch wasthen placed at the edge of the vaginal cuff inferior to the anterior vaginal mucosa,the anterior edge of the peritoneum, the uterosacral ligament, the posteriorperitoneum and posterior vaginal cuff. This was tied down and then also tied intothe remnant of the uterosacral stitch for additional support. The same was thenrepeated on the opposite side. The remaining portion of the vaginal cuff was thenclosed using interrupted figure of eight sutures. Further inspection revealedadequate hemostasis and the vagina was then packed with Iodoform gauze. All sponge,needle, and instrument counts were correct x2 and the patient tolerated the procedurewell and was transferred to the recovery room in stable condition. Dr. Kuo waspresent and participated in all portions of the procedure.Danny Franz DO dictating for WALTER Mcdaniels/[id number]: 01/25/2017 11:54DT: 01/25/2017 13:35SSI File#: [id number] #: [id number] [facility] PATIENT NAME: ALVIN PATTON [id number] [facility] MEDICAL REC #: [id number], [place] [address] DATE:DISCHARGE DATE: 01/25/17OPERATIVE REPORT ATTENDING PHY: Salbador Kou MDVerified/Reviewed by02/05/17 0729 [facility] PATIENT NAME: [facility]TON [id number] [facility] REC #: [id number], [place] [address] DATE:DISCHARGE DATE: 01/25/17OPERATIVE REPORT ATTENDING PHY: Salbador Kuo MD [facility] [place] SURGon 01-24-2017 SURG --------- -----Patient: ALVIN PATTON M -----SPECIMEN: [id number] Collection Date: 01/24/17 Received: 01/24/17 Status: NICHOLAS Vigil. DrHelena: Salbador Kuo MD Ph# Othr. : Cem Yancey DO Material for Examination: A UTERUS AND CERVIX PRE-OP DIAGNOSIS: UTERINE FIBROIDS, IRREGULAR MENSTRUATION POST-OP DIAGNOSIS: SAME SURGICAL PROCEDURE: TOTAL VAGINAL HYSTERECTOMY DIAGNOSIS A. 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 - Proliferative phase endometrium. - Leiomyoma of myometrium, intramural. - Unremarkable serosa.GROSS DESCRIPTION The specimen is received in formalin and labeled with the patient's name, ID and designateduterus and cervix. Submitted is a 154.7 g hysterectomy specimen without adnexa, whichmeasures 10.4 x 6.8 x 5.0 cm. The serosa is pink-woodward and glistening with no areas ofadhesion grossly present. The white-woodward cervix measures 3.2 x 3.2 with a patent 1.1 cmmucoid-covered os. Sectioning through the cervix reveals a white-woodward, glistening,unremarkable cut surface. No masses, lesions or cystic spaces are grossly identified. Theuterus is further opened to reveal an endometrial cavity, which is occluded by awell-circumscribed, solitary nodule measuring 3.5 x 3.2 x 3.0 cm. The endometrial cavity isentirely encapsulated by this nodule and the endometrium measures up to 0.2 cm inthickness. The myometrium measures up to 1.1 cm and is pink-woodward, glistening andunremarkable. Open Cut Examiner sections are submitted in cassettes A1 through A8.SECTION SUMMARY:A1. SerosaA2-3. CervixA4. EndometriumA5. Full section thickness endometrium, myometrium, serosaA6-8. Solitary noduleHY/ceg 01/24/2017 DIRECTOR: Cynthia Blanco M.D. NAME: ALVIN PATTON [facility]: UNIT#: [id number] LOC: ABDIRASHID Babb M.D. ROOM/BED: Robert Puga Jr. M.D. : 82 AGE/SEX: 36/F ORD.Salbador Houser MD CONTINUED ON NEXT PAGE -------Patient: ALVIN PATTON Unit#: [id number] (continued)SPECIMEN: [id number] MICROSCOPIC DESCRIPTION Eight Dee stained slides examined.COPIES TO: Cem Yancey James R MDSigned Verified/Reviewed by CYNTHIA BLANCO M.D. 01/25/17 This dictation was created using voice recognition software. Phonetic and/or minor grammatical errors may exist. DIRECTOR: Cynthia Blanco M.D. NAME: ALVIN PATTON [facility]: UNIT#: [id number] LOC: ABDIRASHID Babb M.D. ROOM/BED: Robert Puga Jr. M.D. : 82 AGE/SEX: 36/F ORD.Salbador Houser MD END OF REPORT Normal [facility] TSon 01-24-2017 ANTIBODY SCREEN TNP Normal [facility] Comment on above: Order Comment: Beau collazo: Missy Result Comment: Nisha ent was NOT transfused or in the past 3 months.Antibody screen not indicated. BLOOD TYPE Positive Normal [facility] Comment on above: Order Comment: Beau Louis URINE PREGNANCYon 01-24-2017 UR HCG QUAL Negative Normal NEGATIVE [facility] Comment on above: Order Comment: Beau Louis Performed By: #### L 550.95181 ####[facility] [id number] [place], [place] [address]He# [phone] UR SPEC GRAV 1.022 Normal 1.005-1.03 0 [facility] Comment on above: Order Comment: Beau collazo: M Performed By: #### L 550.78530 ####[facility] [id number] [place], [place] [address]Qe# [phone] CBCon 01-12-2017 Erythrocyte distribution width Auto Ratio (RBC) 15.3 % High 11-14.5 [facility] Comment on above: Performed By: #### L 550.03199 ####[facility] [id number] [place], [place] [address]Go# [phone] Erythrocytes (RBC) 4.43 M/CU MM Normal 3.90-5.30 [facility] Comment on above: Performed By: #### L 550.42662 ####[facility] [id number] [place], [place] [address]Bx# [phone] Erythrocytes (RBC) 0.0 % Normal Less than 1 [facility] Comment on above: Performed By: #### L 550.43454 ####[facility] [id number] [place], [place] [address]Ud# [phone] Hematocrit (HCT) 36.4 % Normal 35.0-47.0 [facility] Comment on above: Performed By: #### L 550.21672 ####[facility] [id number] [place], [place] [address]Xu# [phone] Hemoglobin mass conc (Bld) 10.8 g/dL Low 11.5-15.5 [facility] Comment on above: Performed By: #### L 550.12592 ####[facility] [id number] [place], [place] [address]Nh# [phone] MCHC mass conc (RBC) 29.7 g/dL Low 32.0-36.0 [facility] Comment on above: Performed By: #### L 550.49061 ####[facility] AYODKBOQEQ8462 [place], [place] [address]Eh# [phone] MCV 82.2 fL Normal 80.0-99.0 [facility] Comment on above: Performed By: #### L 550.84015 ####[facility] UMAPONSJVH5548 [place], [place] [address]Jw# [phone] Platelet mean volume (PMV) 12.9 fL High 9.4-12.4 [facility] Comment on above: Performed By: #### L 550.08695 ####[address] [address]Ji# [phone] Platelets 297 K/CU MM Normal 150-450 [facility] Comment on above: Performed By: #### L 550.09430 ####[address] [address]Hq# [phone] WBC (Leukocytes) 5.3 K/CU MM Normal 4.5-11.0 [facility] Comment on above: Performed By: #### L 550.98723 ####[address] [address]Nb# [phone] CBCon 12-08-2016 Erythrocyte distribution width Auto Ratio (RBC) 12.8 % Normal 11-14.5 [facility] Comment on above: Performed By: #### L 550.39288 ####[address] [address]Qs# [phone] Erythrocytes (RBC) 0.0 % Normal Less than 1 [facility] Comment on above: Performed By: #### L 550.32154 ####[facility] SSD[address] [place] [address]Yd# [phone] Erythrocytes (RBC) 3.35 M/CU MM Low 3.90-5.30 [facility] Comment on above: Performed By: #### L 550.33590 ####[facility] [id number] [place] [address]Dq# [phone] Hematocrit (HCT) 29.6 % Low 35.0-47.0 [facility] Comment on above: Performed By: #### L 550.32068 ####[facility] PAPMZATOSF6753 [place], [place] [address]Rv# [phone] Hemoglobin mass conc (Bld) 9.4 g/dL Low 11.5-15.5 [facility] Comment on above: Performed By: #### L 550.94392 ####[facility] IKGYNTTPIX4378 [place], [place] [address]Nc# [phone] MCHC mass conc (RBC) 31.8 g/dL Low 32.0-36.0 [facility] Comment on above: Performed By: #### L 550.02167 ####[address] [address]It# [phone] MCV 88.4 fL Normal 80.0-99.0 [facility] Comment on above: Performed By: #### L 550.74086 ####[address] [address]Lc# [phone] Platelet mean volume (PMV) 11.5 fL Normal 9.4-12.4 [facility] Comment on above: Performed By: #### L 550.87850 ####[facility] QJIJUMQBIW1207 [place], [place] [address]Yc# [phone] Platelets 365 K/CU MM Normal 150-450 [facility] Comment on above: Performed By: #### L 550.03471 ####[facility] SPBCBYNINI[address] [place] [address]Dd# [phone] WBC (Leukocytes) 8.4 K/CU MM Normal 4.5-11.0 [facility] Comment on above: Performed By: #### L 550.95004 ####[facility] PLETTBSMSZ2844 [place], [place] [address]Pj# [phone] ABO/RHon 11-21-2016 BLOOD TYPE Positive Normal [facility] Comment on above: Order Comment: Davidu s: MIs This Patient Going To Surgery? N ANTIBODY SCREENon 07-04-2017 ANTIBODY SCREEN Negative Normal [facility] Comment on above: Order Comment: Campu s: MIs This Patient Going To Surgery? N CBC W/DIFFon 11-21-2016 BASO ABS 0.10 K/CU MM Normal 0-0.2 [facility] Comment on above: Order Comment: Campu s: M Performed By: #### L 200.02383 ####[facility] NSRCJMGBLU1090 [place], [place] [address]Ab# [phone] Basophils/100 WBC Auto (Bld) 0.4 % Normal 0-2 [facility] Comment on above: Order Comment: Campu s: M Performed By: #### L 200.03659 ####[facility] TRPSULKREJ[address] [place] [address]So# [phone] EOS ABS 0.10 K/CU MM Normal 0-0.5 [facility] Comment on above: Order Comment: Campu s: M Performed By: #### L 200.21051 ####[facility] HGOKAGZJTK[address] [place] [address]Fb# [phone] Eosinophils/100 leukocytes 0.8 % Normal 0-5 [facility] Comment on above: Order Comment: Campu s: M Performed By: #### L 200.25644 ####[facility] ZODSIHGIWP4543 [place], [place] [address]Wu# [phone] Erythrocyte distribution width Auto Ratio (RBC) 13.2 % Normal 11-14.5 [facility] Comment on above: Order Comment: Campu s: M Performed By: #### L 200.56180 ####[facility] CMYZYMFXRT7595 [place], [place] [address]Nw# [phone] Erythrocytes (RBC) 4.30 M/CU MM Normal 3.90-5.30 [facility] Comment on above: Order Comment: Campu s: M Performed By: #### L 200.66475 ####[facility] PKXVRLJGWH[address] [place] [address]Mk# [phone] Erythrocytes (RBC) 0.0 % Normal Less than 1 [facility] Comment on above: Order Comment: Campu s: M Performed By: #### L 200.53123 ####[facility] OZHLFKNPOO4530 [place], [place] [address]Ks# [phone] Hematocrit (HCT) 37.9 % Normal 35.0-47.0 [facility] Comment on above: Order Comment: Campu s: M Performed By: #### L 200.37652 ####[facility] HCQ[address]JMVBM[address] [place], [place] [address]Ph# [phone] Hemoglobin mass conc (Bld) 12.7 g/dL Normal 11.5-15.5 [facility] Comment on above: Order Comment: Campu s: M Performed By: #### L 200.26966 ####[facility] MDLHGCUKBC[address] [place], [place] [address]Ph# [phone] IMMATR GRAN ABS 0.10 K/CU MM Normal Less than 2 [facility] Comment on above: Order Comment: Campu s: M Performed By: #### L 200.64929 ####[facility] DDFNMCWZSV[address] [place], [place] [address]Ph# [phone] IMMATURE GRAN % 0.4 % Normal Less than 2 [facility] Comment on above: Order Comment: Campu s: M Performed By: #### L 200.38273 ####[facility] REAGHFZEDD[address] [place], [place] [address]Ph# [phone] Lymphocytes 1.30 K/CU MM Normal 0.9-4.4 [facility] Comment on above: Order Comment: Campu s: M Performed By: #### L 200.10654 ####[facility] NRJOIIKEVC[address] [place], [place] [address]Ph# [phone] Lymphocytes/100 leukocytes 8.7 % Low 20-40 [facility] Comment on above: Order Comment: Campu s: M Performed By: #### L 200.58311 ####[facility] JJWMJHNSPZ[address] [place], [place] [address]Ph# [phone] MCHC mass conc (RBC) 33.5 g/dL Normal 32.0-36.0 [facility] Comment on above: Order Comment: Campu s: M Performed By: #### L 200.01759 ####[facility] LDTLQFGFCI2645 [place], [place] [address]To# [phone] MCV 88.1 fL Normal 80.0-99.0 [facility] Comment on above: Order Comment: Campu s: M Performed By: #### L 200.23536 ####[address] [address]Yp# [phone] MONO ABS 0.70 K/CU MM Normal 0.1-1.1 [facility] Comment on above: Order Comment: Campu s: M Performed By: #### L 200.45298 ####[address] [address]Xh# [phone] Monocytes/100 leukocytes 4.5 % Normal 2-10 [facility] Comment on above: Order Comment: Campu s: M Performed By: #### L 200.60065 ####[place] [address]Ph# [phone] Neutrophils 13.00 K/CU MM High 2.0-8.3 [facility] Comment on above: Order Comment: Campu s: M Performed By: #### L 200.56914 ####[facility] [id number] [place], [place] [address]Ph# [phone] Neutrophils/100 WBC Auto (Bld) 85.2 % High 45-75 [facility] Comment on above: Order Comment: Campu s: M Performed By: #### L 200.12102 ####[facility] [id number] [place] [address]Gs# [phone] Platelet mean volume (PMV) 10.9 fL Normal 9.4-12.4 [facility] Comment on above: Order Comment: Campu s: M Performed By: #### L 200.76931 ####[facility] YQDIQLTTOV0201 [place], [place] [address]To# [phone] Platelets 187 K/CU MM Normal 150-450 [facility] Comment on above: Order Comment: Campu s: M Performed By: #### L 200.60911 ####[facility] JLULRXPFNU9980 [place], [place] [address]Lt# [phone] WBC (Leukocytes) 15.2 K/CU MM High 4.5-11.0 [facility] Comment on above: Order Comment: Campu s: M Performed By: #### L 200.15014 ####[facility] CSDQZYQJPU5947 [place], [place] [address]Uz# [phone] ED DOCon 11-21-2016 ED DOC PHYSICIAN ASSESSMENT =RECORDS: FlexChartDataEvent Time: 11/21/2016 08:35Status: [facility] [[id number]]Mid- Level Chart (V2b)36 / F / 1980Chart created at 11/21/2016 08:31 by Andre Martinez closed at 11/21/2016 11:13Entry in Emergency Department at 11/21/2016 05:53Patient Name: Alvin Patton Record Number: [id number]: 11/21/2016 08:31 EnteredDepartment at: 11/21/2016 05:53 Patient Seen at:11/21/2016 06:54 PCP: Gideon Complaint:PT IS 12 WEEKS . HAVING ABD. PAINAND BLEEDING. PER PT STARTED AROUND 3-4 THSAM. PT ALSO STATED SHE PASSED OUT ON THE COMMODE [id number] THIS AM.Temperature: 98.1 F (36.7 C). Pulse: 90. Respiratory Rate:18. Blood-pressure:97/63. Oxygen Saturation: 100%.History of Present Illness:This is a 36-year-old female presents with vaginal bleedingthat started this morning. She is 12 weeks. She is G4 D8M0J6C1. She has a history of uterinefibroid and was scheduled for hysterectomylater this month however with her current thatwas canceled. She noticed vaginal bleeding thismorning. Shes had in the toilet and passed a large amountof blood. She estimates more than a cuppossibly nearly a gallon. She passed out on the toilet. She *[facility] PATIENT NAME: ALVIN PATTON M13[address] [facility] [address] MEDICAL REC #: [id number], [place] [address] DEPARTMENT CHART EMERGENCY DEPARTMENT PHYSICIANcame to promptly. She comes to the ED forfurther evaluation. She states when she was achild/teenager in the heat she passed out couple times butnever since. She had a negative workup at that time. Shedenies any palpitations or chest pain. She didnot strike her head or sustain any injuries. She is havingpelvic cramping.HPI Elements: Severity: now MildReview of Systems. Constitutional: negative for FeverCardio-Vascular: positive for Syncope, negative forChest Pain or Palpitations Respiratory: negative forDyspnea GI: negative for Nausea or Vomiting :negative for Dysuria or Hematuria Musculo-Skeletal:negative for Back Pain Neurological: negative forHeadache Hem/Endo: positive for Bleeding, negative forEdema, shes had some chronic vaginal bleedingprior to related to her uterine fibroid. Nohistory of anemiaPast History, Medications, Allergies, Social History andFamily History reviewed in nurses note.Past Medical History:uterine fibroidMedications: Reviewed RN Note. VIT,VERIFIED PER PT 11/21/17Allergies: Reviewed RN NoteNo Known AllergiesSocial History: Reviewed RN Note.Family History: Reviewed RN NotePhysical Examination: General: Alert and Well Developed;this is a pleasant well-appearing 45-guy[age]-luodqhfj female in no acute distress HEENT: Head:Atraumatic. Eyes:negative for Icteric Sclera; PERRL; EOMI. eyes: Conjunctiva [facility] PATIENT NAME: ALVIN PATTON [facility] MEDICAL REC #: [id number], [place] [address] DEPARTMENT CHART EMERGENCY DEPARTMENT PHYSICIANpink. Neck: Supple; moves head and neckfreely Respiratory: No Resp Distress and Normal BreathSounds Cardio-Vascular: No murmur, No rub and RRRAbdomen: Normal Bowel Sounds, No Organomegaly, Non-tenderand Soft; she does have fundal height measures3-4 cm above the pubic symphysis Back: No CVA tendernessExtremity: No Calf Tenderness, No edema andNormal Equal pulses Neurological: Alert, Oriented W4Orrndwufajrke: Mood/Affect Normal and NormalMemory/Judgment (female): patient has some red blood onthe vulva and in her proximal thighsbilaterally. Speculum exam reveals a vagina full of bloodand large clots. These were evacuated withsterile ring forceps and 4 x 4s. The cervical os is open.There are no products of conception in thevagina or in the os. Bimanual examination reveals uterusabout 14 weeks. No cervical motion tenderness.Uterus is a little asymmetric to the right itsenlargement. No adnexal tenderness or [facility]TR[facility] W/DIFF, information as of 11/21/2016, 6:39 am88.1/ 12.7 /15.2* andgt;------andlt; 187/ 37.9 /N:85.2*BASO ABS: 0.10 K/Cu Mm; BASOPHIL %: 0.4 %; EOS ABS: 0.10K/Cu Mm; EOSINOPHIL %: 0.8 %; IMMATR GRAN ABS:0.10 K/Cu Mm; IMMATURE GRAN %: 0.4 %; LYMPH %: 8.7 %; LYMPHABS: 1.30 K/Cu Mm; MCHC: 33.5 Gm/Dl; MONOABS: 0.70 K/Cu Mm; MONOCYTE %: 4.5 %; MPV: 10.9; NEUTROPHILABS: 13.00 K/Cu Mm; NRBC: 0.0 %; RBC: 4.30M/Cu Mm; RDW: 13.2HCGQ, information as of 11/21/2016, 6:39 amHCGQ: 5491 Miu/MlHH, information as of 11/21/2016, 10:39 am/ 10.8* /andgt;------andlt;* /Imaging Study Obtained: AGE 2ST TRIMESTER [facility] PATIENT NAME: ALVIN PATTON M13[address] [facility] MEDICAL REC #: [id number], [place] [address] DEPARTMENT CHART EMERGENCY DEPARTMENT PHYSICIANMedical Decision MakingAt this point ultrasound labs were ordered. QuantitativehCG was 5500 sits with 5-7 weeks gestationhowever by dates she is 12 weeks. The os is open.Ultrasound shows no intrauterine . No ectopicevidence. Fibroid is evident. Findings consistent withcomplete . She did receive a liter ofnormal saline. I did type and screen her. She is bepositive. She does not need RhoGAM. I reviewed casewith Dr. Maza who also examined the patient. Essentiallypatients pressure did not improve anddecreased after initial liter she has continued to bleedvaginally. Head of bed was laid flat herpressure rechecked and she was 90/50. We rechecked herHandamp;H and started a second line and a second literof fluid. see Dr. Garrison addendum.Re-Evaluation:10:45: Additional Information: Discussed Results, Diagnosis andFollow-Up with Patient (). at11:13Pending co-signature: Salbador Maza: Discharge ReportEvent Time: 11/21/2016 11:09: FlexChartDataEvent Time: 11/21/2016 11:35[facility]: [facility] [[id number]]Atte nding Dtfwmfvpl18 / F / 1981Chart (V2b)Chart created at 11/21/2016 10:59 by Salbador Kaur closed at 11/21/2016 11:03Entry in Emergency Department at 11/21/2016 05:53 [facility] PATIENT NAME: ALVIN PATTON M1320 [facility] MEDICAL REC #: [id number], [place] [address] DEPARTMENT CHART EMERGENCY DEPARTMENT PHYSICIANPatient Name: Alvin Patton Record Number: [id number]: 11/21/2016 10:59 EnteredDepartment at: 11/21/2016 05:53 Patient Seen at:11/21/2016 06:54 PCP: Gideon Complaint:PT IS 12 WEEKS . HAVING ABD. PAINAND BLEEDING. PER PT STARTED AROUND 3-4 THSAM. PT ALSO STATED SHE PASSED OUT ON THE COMMODE [id number] THIS AM.Triage Note reviewed and Initial Vital Signs reviewed.Pulse: 90. Respiratory Rate: 18. Blood-pressure: 97/63.Oxygen Saturation: 100%.Medications: VIT,VERIFIED PER PT 11/21/llergies:No Known AllergiesSocial History: Reviewed RN Note.CBC W/DIFF, information as of 11/21/2016, 6:39 am88.1/ 12.7 /15.2* andgt;------andlt; 187/ 37.9 /N:85.2*BASO ABS: 0.10 K/Cu Mm; BASOPHIL %: 0.4 %; EOS ABS: 0.10K/Cu Mm; EOSINOPHIL %: 0.8 %; IMMATR GRAN ABS:0.10 K/Cu Mm; IMMATURE GRAN %: 0.4 %; LYMPH %: 8.7 %; LYMPHABS: 1.30 K/Cu Mm; MCHC: 33.5 Gm/Dl; MONOABS: 0.70 K/Cu Mm; MONOCYTE %: 4.5 %; MPV: 10.9; NEUTROPHILABS: 13.00 K/Cu Mm; NRBC: 0.0 %; RBC: 4.30M/Cu Mm; RDW: 13.2HCGQ, information as of 11/21/2016, 6:39 amHCGQ: 5491 Miu/MlHH, information as of 11/21/2016, 10:39 am [facility] PATIENT NAME: ALVIN PATTON M13[address] [facility] MEDICAL REC #: [id number], [place] [address] DEPARTMENT CHART EMERGENCY DEPARTMENT PHYSICIAN/ 02.25* /andgt;------andlt;/ * /Imaging Study Obtained: AGE 1ST TRIMESTERMedical Decision Vkguyj45-Xaka-rof female 4, para 3, problems in 12 weeksgestation initially seen by physicianassistant with complaints of abdominal pain, cramps andvaginal bleeding. After the patient was seen,case was discussed with me. I evaluated the patient I doagree with the assessment. Patient is stillhaving significant bleeding at the present time as well assome discomfort to palpation over thesuprapubic region. Her initial workup had a white count of15 with an Handamp;H of 12 and 37 and a plate . Patients blood type was B+. Quantitative hCG was [id number]. Ultrasound read by radiology showed nolive IUP.Initial plan was to have patient follow-up with OBphysician as she was having a complete miscarriage.Patient however became hypotensive. Patient was given aliter of fluid yet despite the fluidresuscitation blood pressure still dropped when she stoodup done is 60 systolic. Patient was placed backon the bed. She was ordered for another liter fluid. Bloodpressure has improved up to 95 systolic.Repeat Handamp;H though has dropped from 12 and 37 down to 10and 31. Case was therefore discussed with , covering for the patients child & adolescent psychiatrist. With thehypotension drop of Handamp;H, it is felt patientwill require emergent Dandamp;C. [facility]Critical care management 35 minutes provide the patientpresenting as a miscarriage but becominghypotensive requiring fluid resuscitation.Additional Information: Discussed Results, Diagnosis andFollow-Up with Patient. [facility] PATIENT NAME: ALVIN PATTON M1320 [facility] MEDICAL REC #: [id number], [place] [address] DEPARTMENT CHART EMERGENCY DEPARTMENT PHYSICIANClinical Impression:1. complete miscarriage2. hypotensive secondary to vaginal bleedingCritical Care Time: 35 minutes, excluding billableprocedures. The aggregate critical time was 35 minutesin direct care for this patient either at the bedside orelsewhere in the Emergency Department. This timeis in addition to time spent performing other reportedprocedures.Dispositio n: Discharged *OR. Condition: StableMSE completed.I was the primary ED attending..I confirm that I have evaluated the patient, reviewed themid-level providers documentation, anddiscussed the evaluation, plan of care and disposition ofthe patient with the mid-level provider.. at11:03 ===DISCHARGE REPORT===: FlexChartDataEvent Time: 11/21/2016 08:35: Discharge ReportEvent Time: 11/21/2016 11:09Status: DraftReasons to Return to the ER:You must return to the ER for any new, worsening orchanging symptoms, or if you feel more ill or sick inany way. This is the most important thing to remember.Follow-up:The care you received in the ER was given on an emergencybasis only, and it is often not possible tocompletely treat or diagnose a problem in a single ERvisit. You must see your follow-up doctor for arecheck within a week unless you receive instructions with [facility] PATIENT NAME: ALVIN PATTON M13[address] [facility] MEDICAL REC #: [id number], [place] [address] DEPARTMENT CHART EMERGENCY DEPARTMENT PHYSICIANa different timeframe for follow-up. Pleasefollow all your discharge instructions.Medications:Unle ss the ER doctor tells you differently, you should takeall your regular medications and any newmedications prescribed today. Because it is not possiblefor the ER doctor to review all of yourmedication side effects or interactions, you must reviewpossible side effects and interactions with yourpharmacist when you get your prescriptions filled.EKG and Radiology Results:A air conditioning insulation installer or radiologist will review any EKG orradiology results provided by the ER doctor. We willcontact you if the results in the final EKG or radiologyreports require a change in treatment.Culture Results:Cultures may have been ordered during your ER visit. Wewill contact you if the culture results require achange in treatment.Referrals:Most referrals to specialists come from the on-call listYou should make your regular doctor aware of anyreferrals before you schedule the appointment so that theyare aware and can make suggestionsDIAGNOSIS:complete miscarriage, hypotensive secondary to vaginalbleedingMEDICATIONSWe have given you these prescriptions that you must filland start taking:NoneMy signature below indicates that I have received and *[facility] PATIENT NAME: ALVIN PATTON M13[address] [facility] MEDICAL REC #: [id number], [place] [address] DEPARTMENT CHART EMERGENCY DEPARTMENT PHYSICIANunderstand the oral instructions regarding mymedical problem. I also acknowledge receipt of this writteninstruction sheet including a list of majortests and procedures ordered during my visit. I willarrange for follow-up care as indicated by theseinstructions and referrals.This signed original will be kept in my medical record.Your signature below indicates consent for Case Managementto contact [facility]care providers in [facility] to meet your ongoing healthcare needs. This willallow forcontinuity of care once you leave theEmergency Department. This exchange of informationwillinclude, but not be limited to, disclosure of yourpatient information and possible release of records. :FlexChartDataEvent Time: 11/21/2016 11:35 DEMO GRAPHICS E mergisoft Patient: ALVIN PATTONSex: FDOB: 1980Age: 36 yrAccount No: [id number]: [id number] Date: 05:53 11/21/2016Address: [address] SEAddress: [place] [address] [employer] STRATION E D Number: [id number]: Marital Status: MFinancial Class: PPO TRIAGE Priority: 3 - UrgentComplaint: Abdominal PainStated Complaint: PT IS 12 WEEKS . HAVINGABD. PAIN AND BLEEDING. PER PT STARTED AROUND 3-4 THS AM. *[facility] PATIENT NAME: ALVIN PATTON M1320 [facility] MEDICAL REC #: [id number], [place] [address] DEPARTMENT CHART EMERGENCY DEPARTMENT PHYSICIANPT ALSO STATED SHE PASSED OUT ON THE COMMODE AROUND 0500THIS AM.Arrival Date: 11/21/2016 05:53Triage Date: 11/21/2016 05:54Mode of Arrival: AmbulanceTransfer From: * HomeW: NLanguage: EnglishTransport: [facility] B[facility] A10 In: 11/21/2016 05:59:30 11/21/201605:59:30 RSSA10 (Removed From) Out: 11/21/2016 11:53:55011/21/2016 11:53:55 DMPA PROVI DERS [facility] Provider Contact:11/21/2016 05:54:18 EMSEnd:REN WESLEY Provider Contact: 11/21/2016 06:02:42KCPEnd:MARIANA Barajas Provider Contact: 11/21/201606:06:20 RWKEnd:MD Salbador Maza Provider Contact: 11/21/201606:54:38 JBEnd:ADWOA WHELAN Provider Contact: 11/21/2016 07:10:10KMSEnd: ======TRIAGE HISTORY [facility] PATIENT NAME: ALVIN PATTON M1320 [facility] MEDICAL REC #: [id number], [place] [address] DEPARTMENT CHART EMERGENCY DEPARTMENT PHYSICIAN ALLERGIESAllergic To: No Known Allergies 11/21/2016 05:59 RSSCURRENT MEDSName: VIT 11/21/2016 05:59 RSSName: VERIFIED PER PT 11/21/16 11/21/2016 06:49 KCPILLNESSIllness: *None 11/21/2016 06:49 KCPPAST SURGERY HISTSurgery: Dandamp;C 11/21/2016 06:49 KCPPAST SOCIAL HISTSocial History: Behavior age appropriate 11/21/201606:49 KCPSocial History: Communicates without fkybbcglkt52/04/2017 06:49 KCPSocial History: Lives with family or significant other11/21/2016 06:49 KCPSocial History: Alcohol - None 11/21/2016 06:49 KCPSocial History: Smoker-None 11/21/2016 06:49 KCPSocial History: Recreational Drugs - None 11/21/201606:49 KCPPAST HYDRAULIC JACK ADJUSTER HISTSocial History: Gravida4 Para 2 Ab 06:49 KCPIMMUNIZATIONSImmunization: Flu Vaccine-yes 11/21/2016 06:49 KCP NURSIN G ASSESSMENT ASSESSME NT NOTES [facility] PATIENT NAME: ALVIN PATTON M1320 [facility] MEDICAL REC #: [id number], [place] [address] DEPARTMENT CHART EMERGENCY DEPARTMENT PHYSICIAN 11/21/2016 06:58 pt c/o abdominal cramping and bleedingthat began this morning. pt states that she is 12 weeks. pt aandamp;ox3, perrla +2, msps intact. heartsounds normal. lung sounds cta. respers easy and unlabored.skin pink, warm, and dry. 11/21/2016 06:59 KCP11/21/2016 10:46 upon completion of fluid bolus, ptblood pressure taken. pt stated upon this nurse enteringroom to obtain vitals that she had another surge of vaginalbleeding, got up to try to clean herself up, felt dizzy andsat back down. pt was pale and diaphoretic. right arm bpwas 60/33 and left arm bp would not read. PA and Physicianmade aware. Physician laid pt back and bp of 95/51 wasobtained in right arm. pt still ini lying position in bed,color seems to be returning. will continue to monitor.11/21/2016 10:48 [facility] [place] 11:00 pt aware of call button and to callfor assistance before getting up, pt voices understanding.11/21/2016 11:01 KM11/21/2016 11:21 REPORT GIVEN TO SURGERY 11/21/201611:21 LDP TREATM ENT 2016 06:55 Patient Interaction - Name Band on Pt11/21/2016 06:58 KC11/21/2016 06:56 Patient Interaction - Introduce selfto Patient. 11/21/2016 06:58 KC11/21/2016 06:56 Patient Interaction - Call lightplaced within reach. 11/21/2016 06:58 KCP11/21/2016 06:56 Hourly Rounding - Rounding 11/21/201606:58 KCPElimination/Toileting NPain 5Position Comfortable YSafe Environment YAssessment Note pt resting in bed, bed in low lockedposition, call light within reach, safety measuresmaintained [facility] PATIENT NAME: ALVIN PATTON [id number] [facility] MEDICAL REC #: [id number], [place] [address] DEPARTMENT CHART EMERGENCY DEPARTMENT PHYSICIANFall Risk Change N011/21/2016 06:56 Primary DOC Guide - A. Patient Wuunmfn2811/21/2016 06:58 KCPPrimary History Source PatientAvian Exposure - Been exposed to or in contact with anybird or chicken in the last 30 days NoAvian Exposure - Work on a bird or chicken farm orprocessing plant NoTB Screening All NegativeLatex Allergy Screen All NegativeTravel History - Traveled outside of the [facility] in thelast 30 days NoTravel History - Had contact with a person who hastraveled outside the state in the last 30 days No11/21/2016 06:57 Primary DOC Guide - B. Fall RiskAssessment (Age andlt;65) 11/21/2016 06:58 KCPHistory of Falling in last 3 months? No (0)Confusion or Disorientation? No (0)Intoxicated or Sedated? No (0)Impaired Gait? No (0)Mobility Assist Device Used? No (0)Altered Elimination? No (0)Fall Risk Score 1-2 Points = Low Risk. 3-4 Points =Moderate Risk. 5 or more points = High Risk. 0Fall Score Greater andgt;= 3? No11/21/2016 06:57 Primary DOC Guide - D. PsychosocialAssessment 11/21/2016 06:58 KCPOver the Last 2 weeks, how often have you had littleinterest or pleasure in doing things (0) Not at AllIs Psychosocial Assessment Score 3 or more? If score is3 or more please consult ED Navigator! NoTotal Psychosocial Assessment Score 0Over the last 2 weeks, how often have you been feelingdown, depressed or hopeless (0) Not at All11/21/2016 06:57 Primary DOC Guide - E. Family ViolenceAssessment 11/21/2016 06:58 KCPIndicators of Neglect NoIndicators of Physical Abuse NoIndicators of Sexual Abuse NoIndicators of Verbal/Emotional Abuse NoWithin the past year, has anyone ever pushed, shoved,slapped, choked, hit, punched or kicked you: No [facility] PATIENT NAME: ALVIN PATTON [id number] [facility] MEDICAL REC #: [id number], [place] [address] DEPARTMENT CHART EMERGENCY DEPARTMENT PHYSICIANWithin the past year, has anyone ever pressured orforced you to have sexual activities when you did not wantto: NoDo you feel safe and well cared for: YesIs there a partner from a previous or currentrelationship that is making you feel unsafe now: No11/21/2016 07:53 Genitourinary - Pelvic Exam Aqujdi3711/21/2016 07:53 JRHA11/21/2016 07:59 Hourly Rounding - Rounding 11/21/201607:59 KMSAssessment Note pt in kjpckplirj43/04/2017 10:54 Physician Call - OBcalled at 1040 11/21/2016 10:54 AMGA11/21/2016 10:54 Physician Call - at 1054 11/21/2016 10:54 AMGA11/21/2016 11:09 Physician Call - at 100 11/21/2016 11:10 AMGA11/21/2016 11:09 Physician Call - Dr. Carias at 1100 11/21/2016 11:10 AMGA MEDIC ATIONS IV IV Fluid: B 11/21/2016 09:05 11/21/2016 09:05KMSLine #: 1 Rate: ml/hr Location: antecubitalfossa leftNdl Gauge: 20 # Attempts: 1Notes: blood draws back, flushes wellIV Fluid: S 11/21/2016 09:05 11/21/2016 10:46KMSLine #: 1 Fluid: 0.9% NS 1000cc bagRate: ml/hr 999 Location: antecubital fossa leftNdl Gauge: 20 # Attempts: 1Amt: 1000 [facility] PATIENT NAME: ALVIN PATTON [id number] [facility] MEDICAL REC #: [id number], [place] [address] DEPARTMENT CHART EMERGENCY DEPARTMENT PHYSICIANIV Fluid: D 11/21/2016 10:46 11/21/2016 10:46KMSLine #: 1 Fluid: 0.9% NS 1000cc bagRate: ml/hr 999 Location: antecubital fossa leftNdl Gauge: 20 # Attempts: 1IV Fluid: S 11/21/2016 10:46 11/21/2016 10:46KMSLine #: 1 Fluid: 0.9% NS 1000cc bagRate: ml/hr 999 Location: antecubital fossa leftNdl Gauge: 20 # Attempts: 1IV Fluid: B 11/21/2016 10:46 11/21/2016 10:46KMSLine #: 2 Rate: ml/hr Location: antecubitalfossa rightNdl Gauge: 20 # Attempts: 1Notes: blood draws back, flushes well I AND O VITALS =========VS-ROUTINE Time: 11/21/2016 05:54B/P: 97/63 - Left Upper Arm - Sitting - Machine Pulse:90 - Monitor Resp: 18Sa02: 100 Room Air 11/21/2016 05:59 RSSVS-Pain Time: 11/21/2016 05:54 Pain Level: 5011/21/2016 05:59 RSSVS-GCS Time: 11/21/2016 05:54 Visual: 4 Verbal: 5 Motor:6 GCS Total: 15 11/21/2016 05:59 RSSVS-HT/WT Time: 11/21/2016 05:54 Ht: 150 in. Jmvvfo6111/21/2016 05:59 RSSVS-Visual Time: 11/21/2016 05:54 11/21/2016 05:59 RSSVS-FHT Time: 11/21/2016 05:54 11/21/2016 05:59RSSVS-Notes Time: 11/21/2016 05:54 MAP 75 11/21/201605:59 RSSVS-ROUTINE Time: 11/21/2016 06:00 Temp: 98.10 F - Oral11/21/2016 06:01 RSSVS-Pain Time: 11/21/2016 06:00 11/21/2016 06:01RSS [facility] PATIENT NAME: ALVIN PATTON [id number] [facility] MEDICAL REC #: [id number], [place] [address] DEPARTMENT CHART EMERGENCY DEPARTMENT PHYSICIANVS-GCS Time: 11/21/2016 06:00 11/21/2016 06:01 RSSVS-HT/WT Time: 11/21/2016 06:00 11/21/2016 06:01 RSSVS-Visual Time: 11/21/2016 06:00 11/21/2016 06:01 RSSVS-FHT Time: 11/21/2016 06:00 11/21/2016 06:01RSSVS-Notes Time: 11/21/2016 06:00 11/21/2016 06:01 RSSVS-ROUTINE Time: 11/21/2016 06:55 11/21/2016 06:55KCPVS-Pain Time: 11/21/2016 06:55 11/21/2016 06:55KCPVS-GCS Time: 11/21/2016 06:55 11/21/2016 06:55 KCPVS-HT/WT Time: 11/21/2016 06:55 Weight: 150 lbs Tkfqxt6011/21/2016 06:55 KCPVS-Visual Time: 11/21/2016 06:55 11/21/2016 06:55 KCPVS-FHT Time: 11/21/2016 06:55 11/21/2016 06:55KCPVS-Notes Time: 11/21/2016 06:55 11/21/2016 06:55 KCPVS-ROUTINE Time: 11/21/2016 09:05B/P: 84/49 - Left Upper Arm - Sitting - Machine Pulse:77 - Monitor Resp: 16Sa02: 99 Room Air 11/21/2016 09:06 KMSVS-Pain Time: 11/21/2016 09:05 Pain Level: 09:06 KMSVS-GCS Time: 11/21/2016 09:05 Visual: 4 Verbal: 5 Motor:6 GCS Total: 15 11/21/2016 09:06 KMSVS-HT/WT Time: 11/21/2016 09:05 11/21/2016 09:06 KMSVS-Visual Time: 11/21/2016 09:05 11/21/2016 09:06 KMSVS-FHT Time: 11/21/2016 09:05 11/21/2016 09:06KMSVS-Notes Time: 11/21/2016 09:05 11/21/2016 09:06 KMSVS-ROUTINE Time: 11/21/2016 09:06B/P: 81/50 - Right Upper Arm - Sitting - Flugnup7811/21/2016 09:06 KMSVS-Pain Time: 11/21/2016 09:06 11/21/2016 09:06KMSVS-GCS Time: 11/21/2016 09:06 11/21/2016 09:06 KMSVS-HT/WT Time: 11/21/2016 09:06 11/21/2016 09:06 KMSVS-Visual Time: 11/21/2016 09:06 11/21/2016 09:06 KMSVS-FHT Time: 11/21/2016 09:06 11/21/2016 09:06KMSVS-Notes Time: 11/21/2016 09:06 map 61PA aware of bp, pt states dizzy when she stands but otherthan that she feels fine [facility] PATIENT NAME: ALVIN PATTON [id number] [facility] MEDICAL REC #: [id number], [place] [address] DEPARTMENT CHART EMERGENCY DEPARTMENT PHYSICIANorders received. 11/21/2016 09:06 KMSVS-ROUTINE Time: 11/21/2016 10:49B/P: 60/33 - Right Upper Arm - Sitting - MachinePulse: 71 - Monitor Resp: 18Sa02: 99 Room Air 11/21/2016 10:53 KMSVS-Pain Time: 11/21/2016 10:49 Pain Level: 7011/21/2016 10:53 KMSVS-GCS Time: 11/21/2016 10:49 Visual: 4 Verbal: 5 Motor:6 GCS Total: 15 11/21/2016 10:53 KMSVS-HT/WT Time: 11/21/2016 10:49 11/21/2016 10:53 KMSVS-Visual Time: 11/21/2016 10:49 11/21/2016 10:53 KMSVS-FHT Time: 11/21/2016 10:49 11/21/2016 10:53KMSVS-Notes Time: 11/21/2016 10:49 map 41pa aware of bp, orders received. 11/21/2016 10:53 KMSVS-ROUTINE Time: 11/21/2016 10:52B/P: 95/51 - Left Upper Arm - Lying - Aiaxktg0211/21/2016 10:53 KMSVS-Pain Time: 11/21/2016 10:52 11/21/2016 10:53KMSVS-GCS Time: 11/21/2016 10:52 11/21/2016 10:53 KMSVS-HT/WT Time: 11/21/2016 10:52 11/21/2016 10:53 KMSVS-Visual Time: 11/21/2016 10:52 11/21/2016 10:53 KMSVS-FHT Time: 11/21/2016 10:52 11/21/2016 10:53KMSVS-Notes Time: 11/21/2016 10:52 map 68, bp taken byphysician. 11/21/2016 10:53 KMS ORDERS *Status: Send to Same Day Surgery (OR) 11/21/2016 11:14N/AOrdered: 11/21/2016 11:03 By . OtherReviewed: 11/21/2016 11:14 By . Michael andamp; H 11/21/2016 10:50N/AOrdered: 11/21/2016 10:38 By Andre BarajasCompletcaden Time: 11/21/2016 10:50 By Andre Greene Time: 11/21/2016 10:45 KMSResults Time: 11/21/2016 10:50 [facility] PATIENT NAME: ALVIN PATTON [id number] [facility] MEDICAL REC #: [id number], [place] [address] DEPARTMENT CHART EMERGENCY DEPARTMENT PHYSICIANIV NS 1000 cc bolus (2nd liter)11/21/2016 10:45N/AOrdered: 11/21/2016 10:38 By Andre Huerta Time: 11/21/2016 10:45 By Andre Epperson 2nd IV site, large bore11/21/2016 10:45N/AOrdered: 11/21/2016 10:38 By Andre Huerta Time: 11/21/2016 10:45 By Andre Barajas*Other Nurse: report BP results to Andre11/21/2016 10:45N/AOrdered: 11/21/2016 10:19 By Andre Huerta Time: 11/21/2016 10:45 By Andre Barajas*Other Nurse: recheck BP after IVF ioolcryw57/04/2017 10:45N/AOrdered: 11/21/2016 10:02 By Andre Huerta Time: 11/21/2016 10:45 By Andre Greene Time: 11/21/2016 10:05 KMSNoted Notes: 300cc left to infuse at this time.[employer]ES [employer] BUSINESS DEVELOPMENT MANAGER ORDER: ABSC 11/21/2016 09:44NoneOrdered: 11/21/2016 09:44 Completed Time:11/21/2016 09:44 Results Time: 11/21/2016 10:57Type and screen 11/21/2016 09:05N/AOrdered: 11/21/2016 08:53 By Andre Greene Time: 11/21/2016 09:05 KMSIV NS bolus 1L over 30 min 11/21/2016 09:05N/AOrdered: 11/21/2016 08:51 By Andre Huerta Time: 11/21/2016 09:05 By Andre Greene Time: 11/21/2016 08:51 KMSEXTERN ORDER: ABORH 11/21/2016 07:47NoneOrdered: 11/21/2016 07:47 Completed Time:11/21/2016 07:47 Results Time: 11/21/2016 10:57 [facility] PATIENT NAME: ALVIN PATTON [id number] [facility] MEDICAL REC #: [id number], [place] [address] DEPARTMENT CHART EMERGENCY DEPARTMENT PHYSICIANPelvic set-up 11/21/2016 06:45N/AOrdered: 11/21/2016 06:30 By Andre Huerta Time: 11/21/2016 06:45 By Andre Savage with diff 11/21/2016 06:49N/AOrdered: 11/21/2016 06:30 By Andre Huerta Time: 11/21/2016 06:49 By Andre Greene Time: 11/21/2016 06:45 KCPResults Time: 11/21/2016 06:49Rh type 11/21/2016 06:45N/AOrdered: 11/21/2016 06:30 By Andre BarajasNotcaden Time: 11/21/2016 06:45 KCPEKG and most recent EKG 11/21/2016 06:50N/AOrdered: 11/21/2016 06:37 By Andre BarajasCompleted Time: 11/21/2016 06:50 By Andre Greene Time: 11/21/2016 06:45 CMMCHCG quant 11/21/2016 07:31N/AOrdered: 11/21/2016 06:30 By Andre BarajasCompleted Time: 11/21/2016 07:31 By Andre Greene Time: 11/21/2016 06:45 KCPResults Time: 11/21/2016 07:31US age (1st trimester) 11/21/2016 08:08N/AOrdered: 11/21/2016 06:30 By Andre WaldronesIndication: Abdominal PainNoted Time: 11/21/2016 08:08 DISC HARGE Diag nosis: complete miscarriage, hypotensivesecondary to vaginal bleeding 11/21/2016 11:09Disposition: Time: 11/21/2016 11:03Discharge Time: 11/21/2016 11:53Type: *Send to Same Day Surgery (OR)Condition: Stable for admission/discharge/transfer* [facility] PATIENT NAME: ALVIN PATTON M1320 [facility] MEDICAL REC #: [id number], [place] [address] DEPARTMENT CHART EMERGENCY DEPARTMENT PHYSICIANafter emergency evaluation/treatment Category: *NOTAPPLICABLEReferral: 11/21/2016 11:09Admit Physician: . Other PRES CRIPTIONS CHARGES== 0.9% NS 1000cc bag QTY @ 1 11/21/2016 09:05 KMSAuto Generated Charge0.9% NS 1000cc bag QTY @ 1 11/21/2016 10:46 KMSAuto Generated Charge SIG NATURE Jhonatan WHELAN KMEDUARD RAUSCH [facility] PATIENT NAME: ALVIN PATTON M1320 [facility] MEDICAL REC #: [id number], [place] [address] DEPARTMENT CHART EMERGENCY DEPARTMENT PHYSICIAN Normal [facility] ED Documentation This is a preliminar y report only, as the practitioner review and authentication has not occurred. [facility] EKGon 11-21-2016 EKG Procedure Date and T joan: 11/21/16 0645Test Reason : STATBlood Pressure : / mmHGVent. Rate : 070 BPM Atrial Rate : 070 BPMP-R Int : 148 ms QRS Dur : 078 msQT Int : 412 ms P-R-T Axes : 071 063 052 degreesQTc Int : 444 msNormal sinus rhythmNormal ECGNo previous ECGs availableConfirmed by JUANITA RHODES A. ([id number]) on 11/21/2016 11:24:01 AMReferred By: Overread By: Anant RHODES M.D.FACC MichellDDandT: 11/21/16 0645TDandT:[facility] PAT[facility]: [facility] REC [facility]: [id number], [place] [address] DATE:DISCHARGE DATE:ATTENDING PHY: Fara Danielle,Emergency PhysiELECTROCARDIOGRAM REPORTCLBcc:[facility] PATIENT NAME: [facility] MED[facility] REC #: [id number], [place] [address] DATE:DISCHARGE DATE:ATTENDING PHY: Fara Danielle,Emergency PhysiELECTROCARDIOGRAM REPORT Normal [facility] [place] ELECTROCARDIOGRAM REPORT Normal [facility] [place] AGE 1st TRIMESTERon AGE 1st TRIMESTER AGE 1st TRIMESTEROrdering Physician: Andre Barajas11/21/2016 6:38 AMFIRST TRIMESTER ULTRASOUNDComparison: NoneClinical Statement: Positive test. Vaginal bleeding. Pelviccramping.FINDINGS: Transvesical and endovaginal pelvic ultrasound isperformed. Uterus measures 12.0 cm longitudinally. There is ahypoechoic 5.6 x 5.2 x 4.9 cm shadowing solid mass in the region ofthe uterine fundus. There is distortion of the fundal portion of theendometrial canal by mass effect from the mass. The mass may be asubmucosal fundal uterine fibroid potentially a endometrial mucosalfibroid. The former is thought more likely. Comparison with previousultrasound would be helpful. None at this institution.There is no intrauterine gestational sac, pole or cardiacactivity. Endometrium measures 2.0 cm in thickness and isheterogeneous in echotexture.The right ovary measures 2.0 x 1.5 x 1.8 cm. The left ovary measures2.8 x 2.7 x 2.1 cm. There is Doppler flow associated with bothovaries. There is a mixed echogenicity 1.6 cm region associated withthe left ovary, an involuting follicle or a complex/complicated cyst.There is no free fluid in the pelvis.IMPRESSION:1. No intrauterine is demonstrated. 5.6 cm hypoechoic solidregion may represent either a submucosal fundal fibroid or potentiallyan endometrial mucosal fibroid. A trophoblastic mass may be anotherconsideration. Please correlate with the clinical setting andfollow-up diagnostic assessment as is clinically indicated. Comparisonwith previous pelvic ultrasounds, if indeed these exist may be helpfulto determine the presence of a uterine fibroid.2. In the absence of detectable intrauterine , and thepresence of a positive test, differential considerationsinclude an ectopic , failed versus early,nonvisualized intrauterine . Preliminary report by: Iglesia Jiménez MD FACRFinal report by: Maria Hobbs MD---- Electronic Signature on File ----Signed By: Maria Hobbs [email or web address]: 11/21/2016 8:14 AMSigned: 11/22/2016 12:48 PM Reported By: MARIA HOBBS M.D. Signed By: MARIA HOBBS M.D. Normal [facility] [place] HCGQon 11-21-2016 HCG Qn 5491 MIU/ML Normal less than 3 [facility] Comment on above: Order Comment: Beau s: Missy Result Comment: REFE RENCE COMMENTSLess than 5 mIU/ML NEGATIVE FOR PREGNANCY5-25 mIU/ML BORDERLINE; RETEST IN 48 HOURS, IF INDICATEDGreater than 25 mIU/ML POSITIVE FOR PREGNANCYWEEKS POST LMP RANGE IN mIU/ML* 3-4 9-130 4-5 75-2600 5-6 [phone] 6-7 [phone] 7-12 [id number] 12-16 [id number] 16-29 [phone] 29-41 [phone] *These ranges are from published literature and may not be appropriate for all cases. When HCG levels are above 4000 mIU/ML, distinction between normal and abnormal is poor. The rate of change (doubling time) may be helpful. (Reference: [facility] ) Performed By: #### L 550.32736 ####[facility] [id number] [place], [place] [address]Js# [phone] HHon 11-21-2016 Hematocrit (HCT) 31.8 % Low 35.0-47.0 [facility] Comment on above: Order Comment: Davidu s: M Performed By: #### L 200.94983 ####[address] [address]By# [phone] Hemoglobin mass conc (Bld) 10.8 g/dL Low 11.5-15.5 [facility] Comment on above: Order Comment: Davidu s: M Performed By: #### L 200.90618 ####[facility] [id number] [place] [address]Ia# [phone] Hematocrit (HCT) 31.8 % Low 35.0-47.0 [facility] Comment on above: Order Comment: Campu s: M Performed By: #### L 200.59673 ####[facility] [id number] [place], [place] [address]Nm# [phone] Hemoglobin mass conc (Bld) 10.8 g/dL Low 11.5-15.5 [facility] Comment on above: Order Comment: Davidu s: M Performed By: #### L 200.77992 ####[facility] [id number] [place], [place] [address]Pf# [phone] ORon 11-21-2016 OPERATIVE REPORT This is a preliminar y report only, as the practitioner review and authentication has not occurred. Normal [facility] OR DATE OF SERVICE: 11/21/2016PREOPERATIVE DIAGNOSIS: Incomplete .POSTOPERATIVE DIAGNOSIS: Incomplete .OPERATION: Suction dilatation and curettage.SURGEON: KEENA KrishnanISTANT: None.ANESTHESIA: General.INTRAVENOUS FLUIDS: Crystalloid.URINE OUTPUT: Straight drainage, clear yellow urine prior to the procedure.ESTIMATED BLOOD LOSS: 400 mL from the procedure and clot and blood in the vaultprior to procedure.CLINICAL SUMMARY: The patient is a 36-year-old, G4, P2-0-2-2 who presented to theemergency department with heavy bleeding and cramping, which had started severalhours prior to arrival. She also stated that she had passed out at home. While inthe emergency room, she continued to bleed heavily. Her hemoglobin dropped from 12.7to 10.8. Her ultrasound showed no IUP in the uterus, no free fluid, no ovarianmasses. She had a previous ultrasound in the office, which documented anintrauterine .PROCEDURE: The patient was brought to the operating room with an IV running. Shewas placed in the dorsal supine position. General anesthesia was administered. Shewas then placed in the dorsal lithotomy position using the MetroMile-cane stirrups andprepped and draped in the usual sterile fashion. There was a large amount of bloodand clot in the vault and there was tissue already extruding from her dilated cervix.A weighted speculum was placed in the vagina. The anterior lip of the cervix wasgrasped with a ringed forceps. The clot and tissue was removed from the vault andthe cervix. A 10-mm curved suction curette was then advanced through the cervix andinto the uterus and rotated as it was removed. Multiple passes were made with thesuction curette until no further tissue was retrieved. Gentle blunt curettage wasthen performed with no additional retrieval of tissue. One final pass was made withthe suction curette with no additional tissue obtained.At the conclusion of the procedure, all instruments were removed from the vagina. [facility] PATIENT NAME: ALVIN PATTON [address] [facility] [address] [facility] MEDICAL REC #: [id number], [place] [address] DATE:DISCHARGE DATE:OPERATIVE REPORT ATTENDING PHY: Saloni Edwarde was good hemostasis. The patient was given 1 dose of Methergine IM in the ORand taken to the recovery room in stable condition. Sponge, instrument, and needlecounts were all correct. __BERONICA Lanacster/[id number]: 11/21/2016 09:45DT: 11/21/2016 21:55SSI File#: [id number] #: [id number] [facility] PATIENT NAME: ALVIN PATTON [address] [facility] MEDICAL REC #: [id number], [place] [address] DATE:DISCHARGE DATE:OPERATIVE REPORT ATTENDING PHY: Saloni Edward MD [facility] [place] SURGon 11-21-2016 SURG --------- -----Patient: ALVIN PATTON -----SPECIMEN: [id number] Collection Date: 11/21/16 Received: 11/22/16 Status: NICHOLAS Rhodes DrHelena: Saloni Edward MD Ph# Othr. Dr.: Cem Yancey DO Material for Examination: A PRODUCTS OF CONCEPTION PRE-OP DIAGNOSIS: INCOMPLETE POST-OP DIAGNOSIS: SAME SURGICAL PROCEDURE: SUCTION DILATATION AND CURETTAGE DIAGNOSIS A. Products of conception:- Immature chorionic villi and gestational tissue with degenerative changes.- No parts identified.Note: Morphologic features of hypovascular/avascular chorionic villi arecompatible with first trimester pregnency.GROSS DESCRIPTION The specimen is received fresh and labeled with the patient's name, ID and designatedproducts of conception, are multiple fragments of red-brown blood clot and tissue, 10.0 x8.0 x 3.5 cm. Grossly, placental tissue is identified. parts are not identified. Open Cut Examiner sections are submitted in cassettes A1 through A2 of placental tissue.MICROSCOPIC DESCRIPTION 2 Dee slides reviewed. JONATHAN/patricia 11/23/2016COPIES TO: Cem Yancey Naomi A MDSigned Verified/Reviewed by MIKEL CUENCA 11/23/16 This dictation was created using voice recognition software. Phonetic and/or minor grammatical errors may exist. DIRECTOR: Cynthia Blanco M.D. NAME: ALVIN PATTON [facility]: UNIT#: [id number] LOC: .SD Remi Babb M.D. ROOM/BED: Robert Puga Jr. M.D. : 82 AGE/SEX: 36/F ORD.Saloni Coe MD END OF REPORT [facility] US TRANSVAGINALon 11-21-2016 US TRANSVAGINAL Reports combined. Pl ease see radiology accession # [id number].IMPRESSION:Reports combined. The report appears on the accession number above. END OF REPORT Reported By: MARIA HOBBS M.D. Signed By: MARIA HOBBS M.D. [facility] Encounters Encounter Date Encounter Type Care Provider Facility Start: 02-25-2024 End: 02-25-2024 ambulatory CEM YANCEY DO Facility:A Start: 11-09-2023 End: 11-09-2023 ambulatory CEM YANCEY DO Facility:A Start: 02-28-2023 ambulatory [facility] Edwin Yifan Facility:[facility] Start: 02-13-2023 End: 02-13-2023 ambulatory CEM YANCEY DO Facility:A Start: 02-10-2023 End: 02-18-2023 ambulatory INA Facility:[facility] Start: 02-10-2023 End: 02-17-[address] [facility] Work Phone: Start: 02-10-2023 End: 02-17-[address] [facility] Start: 01-02-2022 End: 01-02-2022 Patient encounter procedure CEM YANCEY DO [facility] Start: 10-21-2021 End: 10-21-2021 Patient encounter procedure CEM YANCEY DO [facility] Start: 02-03-2021 End: 02-03-2021 ambulatory [facility] Start: 03-30-2020 End: 03-30-2020 ambulatory [facility] Start: 03-05-2020 End: 03-05-2020 ambulatory [facility] Start: 03-01-2020 End: 03-01-2020 ambulatory [facility] Start: 02-25-2020 End: 02-25-2020 ambulatory [facility] Start: 11-11-2019 Patient encounter procedure UNKNOWN PROVIDER Facility:[facility] Start: 01-24-2017 Evaluation and management of inpatient Salbador Israel Ayaan Facility:[facility] Start: 01-11-2017 Ambulatory Salbador Kuo Facility :[facility] Start: 12-08-2016 Ambulatory Saloni Jaini ty:[facility] Start: 11-21-2016 Evaluation and management of inpatient Cem Yancey Facility:[facility] Procedures Date Procedure Procedure Detail Performing Clinician Start: 02-10-2023 Viral antigen assay Start: 01-24-2017 Hysterectomy CEM LEMONS DO Comment on above: transvaginal for fib roids- Start: 11-21-2016 Dilation and curettage CEM YANCEY DO Start: 05-21-2010 Dilation and curettage CEM YANCEY DO H/O: hysterectomy History of hysterectomy( Confirmed ) CEM YANCEY DO Immunizations Immunization Date Immunization Notes Care Provider Fa cility 04-22-2021 SARS-CoV-2 (COVID-19 ) mRNA-8153 vaccine CEM YANCEY DO [facility] Comment on above: Result Comment: 2021: TPV4 02-24-2021 influenza, injectable, quadrivalent, preservative free [facility] 02-24-2021 influenza, injectable, quadrivalent, contains preservative; Translations: [Fluarix PF Quadrivalent ] CEM YANCEY DO [facility] 06-02-2020 SARS-CoV-2 mRNA (tozinameran) vaccine CEM JAVID DO [facility] Comment on above: Result Comment: 2021: TPVAL 06-01-2020 SARS-CoV-2 mRNA (tozinameran) vaccine CEM RUBINVESTA DO [facility] 05-12-2020 SARS-CoV-2 mRNA (tozinameran) vaccine CEM YANCEY DO [facility] 02-05-2020 influenza, injectable, quadrivalent, preservative free; Translations: [Fluarix PF Quadrivalent ] CEM YANCEY DO [facility] 02-05-2020 tetanus toxoid, reduced diphtheria toxoid, and acellular pertussis vaccine, adsorbed; Translations: [Boostrix (Tdap)] CEM YANCEY DO [facility] 02-19-2019 influenza, injectable, quadrivalent, preservative free; Translations: [Fluarix PF Quadrivalent ] CEM YANCEY DO [facility] Payers Date Payer Category Payer Self-pay [id number] 2022 Unknown [id number] 2019 Unknown 2015 Unknown [id number] 1981 Unknown [id number] 2.16. [id number] 1981 Unknown [id number] 2.16.84 0.1.760409.3.579.2.651 1981 Unknown [id number] 2.16.84 [id number] 1981 Unknown [id number] 2.16.84 0.1.066526.3.579.2.651 1981 Unknown [id number] 2.16.84 0.1.751118.3.579.2.651 1981 Unknown [id number] 2.16.84 0.1.942852.3.579.2.651 1981 Unknown [id number] 2.16.8 [id number] 1981 Unknown [id number] 2.16.8 [id number] 1981 Unknown [id number] 2.16.8 [id number] Unknown [id number] 2.16.8 [id number] Unknown [id number] 2.16.8 [id number] Social History Date Type Detail Facility Start: 02-19-2019 Tobacco smoking status Never s moked tobacco (finding) [facility] Sex Assigned At Sex [facility] Start: 1980 Sex Assigned At Female [facility] Evaluation + Plan note Note Date & Type Note Facility Evaluation + Plan note Future Appointments Appointment Date:10/27/2021 08:20:00 AM Scheduled Provider:CEM YANCEY DO Location:[facility] Appointment Type:PC Wellness Annual w/Labs [facility] Evaluation + Plan note Laboratory Note Date & Type Note Facility Evaluation + Plan note Future Appointments Appointment Date:10/27/2022 08:15:00 AM Scheduled Provider: Location:[facility] Appointment Type:PC Nurse Lab Appointment Date:11/03/2022 08:20:00 AM Scheduled Provider:CEM YANCEY DO Location:[facility] Appointment Type:PC Wellness Annual w/Labs Future Scheduled TestsThyroid Stimulating Hormone 10/27/22Lipid Profile 10/26/22Hemogram/Platelets - Panel 10/26/22Vitamin D Level 10/26/22Complete Metabolic Panel 10/26/22 [facility] Evaluation note Note Date & Type Note Facility Evaluation note No assessment information availa [facility] Work Phone: Hospital course Narrative Note Date & Type Note Facility Hospital course Narrative No data available for this section [facility] Hospital Discharge instructions Note Date & Type Note Facility Hospital Discharge instructions No data available for this section [facility] Progress note Note Date & Type Note Facility Progress note No data available for this section [facility] Summary Purpose Family History No Family History Records FoundNo Family History Records FoundNo Family History Records FoundNo Family History Records FoundNo Family History Records FoundNo Family History Records FoundNo Family History Records Found Advance Directives No Advanced Directives Records FoundNo Advanced Directives Records FoundNo Advanced Directives Records FoundNo Advanced Directives Records FoundNo Advanced Directives Records FoundNo Advanced Directives Records FoundNo Advanced Directives Records Found Additional Source Comments INFORMATION SOURCE (unrecogn ized section and content) DATE CREATED AUTHOR 11/13/2017 [facility] Beatriz Barth DATE CREATED AUTHOR AUTHOR'S ORGANIZ ATION 12/07/2019 [facility] [employer] [facility] DATE CREATED AUTHOR AUTHOR'S ORGANIZ ATION 04/01/2020 [facility] DATE CREATED AUTHOR AUTHOR'S ORGANIZ ATION 02/09/2021 Leif Warner [facility] DATE CREATED AUTHOR AUTHOR'S ORGANIZ ATION 02/23/2023 [facility] DATE CREATED AUTHOR AUTHOR'S ORGANIZ ATION 11/12/2023 [facility] ([place] DATE CREATED AUTHOR AUTHOR'S ORGANIZ ATION 03/08/2024 [facility] Care Team (unrecognized sect ion and content) Team Status: Active Member Role Status Dates CEM YANCEY Primary Care Provider Active Team Status: Inactive Member Role Status Dates JAVID SALDANA Primary Care Provider Active Dr. Elias Saha MD Attending Provider, Referring Pr delvin Active Care Team (unrecognized sect ion and content) Care Team Personnel Name: CEM YANCEY DO Position: P4 Physician - Primary Care Member Role: Primary Care Physician Address: Address: [address] [place] [address] Care Team Related Persons Name: THAOSOCORRO Name: MARCUS OSUNA Goals (unrecognized section and content) Goals may be documented in a n alternate section FOR RECORDS PERTAINING TO PATIENTS WHO ARE OR HAVE BEEN ENROLLED IN A CHEMICAL DEPENDENCY/SUBSTANCEABUSE PROGRAM, SOME INFORMATION MAY BE OMITTED. This clinical summary was aggregated from multiple sources. Caution should be exercised in using it in the provision of clinical care. This summary normalizes information from multiple sources, and as a consequence, information in this document may materially change the coding, format and clinical context of patient data. In addition, data may be omitted in some cases. CLINICAL DECISIONS SHOULD BE BASED ON THE PRIMARY CLINICAL RECORDS. [facility] [employer] provides no warranty or guarantee of the accuracy or completeness of information in this document.
[2024-11-14 10:32] LABS: Vitamin D,25 Hydroxy 39.5 ng/mL (30-100)
== END | disposition home or self-care (01) ==
DX: Z00.00 Encounter for general adult medical examination without abnormal findings (principal); E55.9 Vitamin D deficiency, unspecified
CPT/HCPCS: 36415; 82306